=== PATIENT | female | born 1965 | race Caucasian/White ===

== ENCOUNTER → 2019-09-29 17:50 | Outpatient (BNVA) | payer MEDICARE, SELFPAY | PROVIDERS: Family Provider Family Medicine; PCP Family Medicine; Visit Provider Family Medicine | DX: I10 Essential (primary) hypertension (principal) | CPT/HCPCS: 80048; 80061 ==

== ENCOUNTER → 2020-04-01 10:10 | Outpatient (BNVA) | payer MEDICARE, SELFPAY | PROVIDERS: Family Provider Family Medicine; PCP Family Medicine; Visit Provider Nurse Practitioner Family | DX: I10 Essential (primary) hypertension (principal); Z72.0 Tobacco use | CPT/HCPCS: 80053; 80061; 82043 ==

== ENCOUNTER → 2020-06-27 11:35 | Outpatient (BNVA) | payer MEDICARE, SELFPAY | PROVIDERS: Family Provider Family Medicine; PCP Family Medicine; Visit Provider Nurse Practitioner Family | DX: Z20.828 Contact with and (suspected) exposure to other viral communicable diseases (principal) | CPT/HCPCS: 87635 ==

== ENCOUNTER → 2020-07-18 11:24 | Outpatient (BNVA) | payer MEDICARE, SELFPAY | PROVIDERS: Family Provider Family Medicine; PCP Family Medicine; Visit Provider Family Medicine | DX: I10 Essential (primary) hypertension (principal); H10.10 Acute atopic conjunctivitis, unspecified eye | CPT/HCPCS: 80048 ==

== ENCOUNTER → 2020-08-26 09:49 | Outpatient (BNVA) | payer MEDICARE, SELFPAY | PROVIDERS: Family Provider Family Medicine; PCP Family Medicine; Visit Provider Emergency Medicine | DX: Z20.828 Contact with and (suspected) exposure to other viral communicable diseases (principal); R53.83 Other fatigue | CPT/HCPCS: 87635 ==

== ENCOUNTER → 2021-02-02 10:22 | Outpatient (BNVA) | payer MEDICARE, SELFPAY | PROVIDERS: Family Provider Family Medicine; PCP Family Medicine; Visit Provider Family Medicine | DX: E78.2 Mixed hyperlipidemia (principal); I10 Essential (primary) hypertension | CPT/HCPCS: 80053; 80061 ==

== ENCOUNTER → 2021-08-02 10:18 | Outpatient (BNVA) | payer MEDICARE, SELFPAY | PROVIDERS: Family Provider Family Medicine; PCP Family Medicine; Visit Provider Family Medicine | DX: E78.2 Mixed hyperlipidemia (principal); I10 Essential (primary) hypertension; H10.10 Acute atopic conjunctivitis, unspecified eye | CPT/HCPCS: 80053; 80061 ==

== ENCOUNTER → 2022-03-20 10:29 | Outpatient (BNVA) | payer MEDICARE, SELFPAY | PROVIDERS: Family Provider Family Medicine; PCP Family Medicine; Visit Provider Family Medicine | DX: I10 Essential (primary) hypertension (principal); H10.10 Acute atopic conjunctivitis, unspecified eye; M79.644 Pain in right finger(s); G89.29 Other chronic pain | CPT/HCPCS: 73130 ==

== ENCOUNTER → 2022-03-26 13:29 | Outpatient (BNVA) | payer MEDICARE, SELFPAY | PROVIDERS: Family Provider Family Medicine; PCP Family Medicine; Visit Provider Student in an Organized Health Care Education/Training Program | DX: M79.644 Pain in right finger(s) (principal) | CPT/HCPCS: 73130 ==

== ENCOUNTER 2022-03-26 15:53 | Outpatient (CLI) | payer MEDICARE, SELFPAY | END 2022-03-26 15:54 | disposition home or self-care (01) | LOC: SPT 15:53 | PROVIDERS: Family Provider Family Medicine; PCP Family Medicine; Visit Provider Student in an Organized Health Care Education/Training Program | DX: Z46.89 Encounter for fitting and adjustment of other specified devices (principal); G56.03 Carpal tunnel syndrome, bilateral upper limbs | CPT/HCPCS: 97760; L3908 ==

== ENCOUNTER → 2022-05-09 12:58 | Outpatient (BNVA) | payer MEDICARE, SELFPAY | PROVIDERS: Family Provider Family Medicine; PCP Family Medicine; Referring Provider Student in an Organized Health Care Education/Training Program; Visit Provider Specialist | DX: G56.01 Carpal tunnel syndrome, right upper limb (principal) | CPT/HCPCS: 95910; 95912 ==

== ENCOUNTER 2022-05-17 09:53 | Outpatient (CLI) | payer MEDICARE, SELFPAY ==
--- NOTE | 2022-05-17 10:05 | MM_ITS ---
WS: [id number] BILATERAL SCREENING DIGITAL TOMOSYNTHESIS MAMMOGRAM WITH CAD HISTORY: Screening exam. COMPARISON: 05/26/2019 Bilateral CC and MLO views with tomosynthesis and synthetic mammography submitted. Computer aided det ection analyzed. Breast composition: There are scattered areas of fibroglandular density. No suspicious masses, microc alcifications or architectural distortion. MM/[place] [id number] IMPRESSION: BI-RADS: 1-Negative FOLLOW UP: 1 Year Follow-up
== END 2022-05-17 09:54 | disposition home or self-care (01) ==
LOC: RAD 09:55
PROVIDERS: PCP Family Medicine; Visit Provider Family Medicine
DX: Z12.31 Encounter for screening mammogram for malignant neoplasm of breast (principal)
CPT/HCPCS: 77063; 77067

== ENCOUNTER → 2022-05-18 10:23 | Outpatient (BNVA) | payer MEDICARE, SELFPAY | PROVIDERS: PCP Family Medicine; Visit Provider Student in an Organized Health Care Education/Training Program | DX: G56.01 Carpal tunnel syndrome, right upper limb (principal); G56.02 Carpal tunnel syndrome, left upper limb | CPT/HCPCS: 99214 ==

== ENCOUNTER 2022-05-23 06:55 | Day surgery (SDC) | payer MEDICARE, SELFPAY ==
[2022-05-22 10:00] VITALS: BMI 28.7
[2022-05-23] VITALS (8 sets, daily range): BP systolic 141–178; BP diastolic 73–101; PULSE 59–85; RESP 16–19; TEMP 36.4–36.6; O2SAT 98–100
[2022-05-23] MEDS: sodium chloride 0.9% 1,000 ML 30 ML IV (07:40)
--- NOTE | 2022-05-23 07:49 | P.ANESASSM_ITS ---
Pre-Anesthetic Assessment Height/Weight: Height 1.55 m Weight 68.946 kg Preop Diagnosis: Right carpal tunnel syndrome Operation Date: 05/23/22 08:15 Proposed Procedures p RIGHT CARPAL TUNNEL RELEASE [id number],G56.01(Right) - Zeferino Lunsford DO Familial anesthetic complications: None Was Beta Zhang taken within 24 hours: N/A Was Clonidine taken within 24 hours: N/A Last intake: Intake Last Liquid Date 05/22/22 Last Liquid Time 19:00 Last Solid Date 05/22/22 Last Solid Time 19:00 Social No alcohol and No tobacco Exam alert, oriented x 3, clear to auscultation bilaterally and regular rate & rhythm Airway Mallampati: Class II Dentition: false CV/HEM Hypertension Metabolic Hyperlipidemia Neuropsych glaucoma, dry eyes Anesthetic Plan ASA status: 2 Anesthesia: MAC Risk of > 500 ml blood loss (7ml/kg in children): No Medications/Allergies Home Medications Medication Instructions Recorded Confirmed Last Taken Type artificial tears(hypromellose) 0.3 1 drop ophthalmic (eye) DAILY 09/29/19 05/23/22 05/23/22 History % eye gel (Systane Gel) propylene glycol 0.6 % eye drops 1 drop ophthalmic (eye) TID PRN 09/29/19 05/23/22 05/23/22 History (Systane Balance) Dry Eyes timolol maleate 0.5 % eye drops 1 drop ophthalmic (eye) BID 09/29/19 05/23/22 05/23/22 History omega-3 fatty acids 1,000 mg 1,000 mg PO DAILY 08/02/21 05/23/22 05/22/22 History capsule (Fish Oil Concentrate) fluticasone propionate 50 1 spray intranasal Q12H #15.8 mL 03/20/22 05/23/22 05/22/22 Rx mcg/actuation nasal spray,suspension loratadine 10 mg tablet 10 mg PO DAILY 90 days #90 tabs 03/20/22 05/23/22 05/22/22 Rx losartan 100 1 tab PO DAILY 90 days #90 tabs 03/20/22 05/23/22 05/22/22 Rx mg-hydrochlorothiazide 25 mg tablet BILATERAL WRIST SPLINT #1 ea 03/26/22 05/18/22 Unknown Rx ascorbate calcium (vitamin C) 500 1,000 mg PO DAILY 05/02/22 05/23/22 05/22/22 History mg tablet cholecalciferol (vitamin D3) 325 250 mcg PO DAILY 05/02/22 05/23/22 05/22/22 History mcg (13,000 unit) capsule triamcinolone acetonide 0.1 % 1 applic topical BID PRN itching 05/02/22 05/22/22 Unknown Rx topical cream #454 grams cinnamon bark 500 mg capsule 500 mg PO DAILY 05/22/22 05/23/22 05/22/22 History (Cinnamon) Allergies Allergy/AdvReac Type Severity Reaction Status Date / Time diphenhydramine Allergy rash Verified 05/22/22 09:48 [From Benadryl] aspirin AdvReac Mild hives Verified 05/22/22 09:48 [facility] Anesthesia Medical History Cubital tunnel syndrome on right ALANA (generalized anxiety disorder) Glaucoma Hypertension Left carpal tunnel syndrome Mixed hyperlipidemia Right carpal tunnel syndrome Seasonal allergic conjunctivitis Surgical History No pertinent past surgical history Family History Other Cancer Heart disease Social History Smoking and tobacco status: never smoked Alcohol intake: never Female Reproductive History Spontaneous abortions: No Data Anesthesia Cardiac Studies: No Data to Display
[2022-05-23] MEDS: acetaminophen 1,000 MG/100 ML PIGGYBACK 400 MG IV (07:52)
[2022-05-23] MEDS: ketorolac 30 mg/mL INJ IVP (07:53)
[2022-05-23] MEDS: ceFAZolin 2,000 MG in sodium chloride 0.9% (plus) 50 ML 100 MG IV (08:00)
[2022-05-23] MEDS: lidocaine 2% INJ 20 mL INJECTION (08:10)
--- NOTE | 2022-05-23 08:10 | W.PM.OPSUD ---
Surgery/Procedure H&P Update DATE OF PROCEDURE: May 24, 2022 DATE H&P PERFORMED: 05/18/22 CHANGES TO PREVIOUS DOCUMENTATION: None PREOP DIAGNOSIS: Right carpal tunnel syndrome PRIMARY INDICATION FOR PROCEDURE: Right carpal tunnel syndrome PLANNED PROCEDURE: Operation Date: 05/23/22 08:15 Proposed Procedures p RIGHT CARPAL TUNNEL RELEASE [id number],G56.01(Right) - Zeferino Lunsford DO
--- NOTE | 2022-05-23 08:58 | PM.OP2 ---
Brief Operative Note Date of procedure: 05/23/22 Pre-op diagnosis: Right carpal tunnel syndrome Post-op diagnosis: same Procedure Done: right carpal tunnel release Surgeon: Zeferino Lunsford Estimated blood loss (mL): 2 Complications: None Post-op Plan: Patient recovering in PACU. Dressing on and in place. Patient given appropriate discharge instructions as well as pain medication postoperatively. She can be weightbearing as tolerated to the right hand. We will follow-up with me in office in 2 weeks. Contact the office for any questions or concerns Condition: stable Disposition: same day Coding Level of Care Code Acute Associate Professor Of Communication for Abel Prabhakar
--- NOTE | 2022-05-23 09:00 | PM.PACU ---
PACU note Narrative: Patient recovering well in PACU. Patient's pain controlled. Patient received local block and has decreased sensation of the fingers of the right hand. She is able to wiggle her fingers. Brisk capillary refill less than 2 seconds. Fingertips warm well perfused. Exam: awake ( see narrative for detailed exam) Disposition: discharged
--- NOTE | 2022-05-23 09:02 | P.OP_ITS ---
Operative Report Date of procedure: May 23, 2022 Pre-op diagnosis: Preop Diagnosis Right carpal tunnel syndrome Post-op diagnosis: Same Procedure done: right carpal tunnel release Surgeon: Zeferino Lunsford DO Estimated blood loss: 2 cc 8 minutes IV fluids: See anesthesia record Complications: None Findings: See operative report narrative. Condition: stable Disposition: same day Brief History: Patient is a 51-year-old female with complaints of right carpal tunnel syndrome. Patient was seen evaluated in the outpatient setting failed conservative treatment of right we saw patient back in the office and discussed her EMG findings and talked about her treatment options as far as nonoperative operative intervention. She did have an EMG which showed moderate to severe right carpal tunnel syndrome. Through shared decision-making and after failing conservative treatment she elects to proceed with surgical intervention for right carpal tunnel release surgery. Patient states she like to forego corticosteroid injection and have this addressed surgically. Patient understands risk, benefits, complications, alternatives to surgical treatment option. Understanding her wrist she agrees to proceed with surgical intervention. Consent was obtained in the office. All questions were answered. She agrees to proceed with surgical intervention for right carpal tunnel release surgery. Procedure: Patient was seen and evaluated in the preoperative holding area. Consent was reviewed with patient. Correct extremity was then marked. Patient was then seen evaluated by the preoperative and anesthesia team. Once ready for surgical intervention patient was then subsequently taken back to the operative suite. She was transported onto the OR table in supine position all bony prominences well-padded patient appropriately secured to the bed. An armboard was placed to the right upper extremity. Patient's right upper extremity was then nonsterile tourniquet applied. Right upper extremity was then prepped and draped in standard orthopedic fashion. Final timeout was performed. Patient received appropriate preoperative antibiotics. Patient underwent local anesthesia in the preplanned incision site utilizing 5 cc of ropivacaine and bupivacaine. This point time the right upper extremity was then exsanguinated with Esmarch tourniquet and tourniquet inflated to 250 mmHg. A standard mini open carpal tunnel release incision was then made starting with the most distal extent of Higgins's cardinal line in line with the fourth ray extending just distal to the wrist crease. Sharp scalpel excision through skin and subcutaneous tissue self-retaining retractor placed in the palmar fascia was identified. This was split longitudinally deep self-retaining retraction was then placed and utilizing 15 blade scalpel with feathered through the fascia down directly over the transverse carpal ligament. This point time utilizing my entire incision feathered and through the transverse carpal ligament until the carpal tunnel was then encountered. Once this occurred I then utilized my Littler dissection scissors to carry out my decompression of the transverse carpal ligament distally. This was taken through the fascia as well as the most distal extent of the transverse carpal ligament to Count of the palmar fat and a [place] was placed and no areas of entrapment was noted distally this completed the distal decompression. Next I placed a Kasdan retractor proximally. This was placed above the transverse carpal ligament. Next under direct visualization through loupe magnification I took my Littler dissection scissors with the curved facing ulnarly to care to not injure the palmar cutaneous nerve branch of the nerve direct visualization released the transverse carpal ligament to its entirety proximally into the medial antebrachial fascia which was appropriately decompressed. I then utilized a [place] and felt no bands of entrapment of the median nerve proximally or distally. This completed by decompression. Of note the nerve did appear to be constricting at the carpal tunnel with an hourglass position. Mild irritation noted around the nerve. No masses noted. Care to protect the motor recurrent and palmar cutaneous branches was performed. At this point time is completed the decompression. Tourniquet deflated. Hemostasis maintained with electrocautery. Wound bed was then thoroughly irrigated. Incision was then c losed with interrupted horizontal mattress sutures. Incision was then dressed with a bulky soft dressing of Xeroform 4 x 4's ABD Curlex and Holden wrap. Patient tolerated procedure without complications she was then awakened from anesthesia and taken to PACU in stable condition. Disposition: Patient taken to PACU in stable condition. Dressing on in place clean dry and intact. Patient will be given appropriate discharge instructions as well as pain medication postoperatively. She will follow-up with Dr. Lunsford in the office in 2 weeks. May be weightbearing as tolerated range of motion as tolerated to the right hand. All questions answered. We will see her in the office. She understands she has any questions or concerns she can contact the office for any questions.
--- NOTE | 2022-05-23 13:49 | ANE.PACU2 ---
Inpatient post-anesthesia follow up: Airway intact: Yes Vital signs: Temperature 97.5 F Pulse Rate 78 Respiratory Rate 18 Blood Pressure 178/86 Pulse Oximetry 98 Oxygen Delivery Me thod Room Air Oxygen Flow Rate 10 Fraction of Inspir ed Oxygen Hydration adequate: Yes Nausea and vomiting: No Pain level: 1 Mental status: Baseline
== END 2022-05-23 09:30 | disposition home or self-care (01) ==
PROVIDERS: PCP Family Medicine; Visit Provider Student in an Organized Health Care Education/Training Program
PROC: (CPT 64721; principal; 2022-05-23 08:05)
DX: G56.01 Carpal tunnel syndrome, right upper limb (principal); I10 Essential (primary) hypertension; E78.5 Hyperlipidemia, unspecified; F41.1 Generalized anxiety disorder; E78.2 Mixed hyperlipidemia
CPT/HCPCS: 64721; J1885; J2704; J2795; J3010; J7030

== ENCOUNTER → 2022-05-30 13:28 | Outpatient (BNVA) | payer MEDICARE, SELFPAY | PROVIDERS: Family Provider Family Medicine; PCP Family Medicine; Visit Provider Family Medicine | DX: Z12.4 Encounter for screening for malignant neoplasm of cervix (principal) | CPT/HCPCS: 87624 ==

== ENCOUNTER → 2022-06-11 09:10 | Outpatient (BNVA) | payer MEDICARE, SELFPAY | PROVIDERS: Family Provider Family Medicine; PCP Family Medicine; Visit Provider Student in an Organized Health Care Education/Training Program | DX: Z98.890 Other specified postprocedural states (principal) | CPT/HCPCS: 99024 ==

== ENCOUNTER 2022-06-18 06:00 | Outpatient (RCR) | payer MEDICARE, SELFPAY | END 2022-07-11 23:59 | disposition home or self-care (01) | LOC: MOT 06:00 | PROVIDERS: Family Provider Family Medicine; PCP Family Medicine; Visit Provider Student in an Organized Health Care Education/Training Program | DX: G56.01 Carpal tunnel syndrome, right upper limb (principal) | CPT/HCPCS: 97110; 97140; 97165 ==

== ENCOUNTER → 2022-07-16 10:06 | Outpatient (BNVA) | payer MEDICARE, SELFPAY | PROVIDERS: Family Provider Family Medicine; PCP Family Medicine; Visit Provider Student in an Organized Health Care Education/Training Program | DX: M65.311 Trigger thumb, right thumb (principal) | CPT/HCPCS: 20600; 99214; J3301; J3490 ==

== ENCOUNTER → 2022-07-24 09:56 | Outpatient (BNVA) | payer MEDICARE, SELFPAY | PROVIDERS: Family Provider Family Medicine; PCP Family Medicine; Visit Provider Family Medicine | DX: F41.1 Generalized anxiety disorder (principal); I10 Essential (primary) hypertension; E78.2 Mixed hyperlipidemia; Z13.1 Encounter for screening for diabetes mellitus; M65.311 Trigger thumb, right thumb | CPT/HCPCS: 80053; 80061 ==

== ENCOUNTER → 2022-09-07 07:54 | Outpatient (BNVA) | payer MEDICARE, SELFPAY | PROVIDERS: Family Provider Family Medicine; PCP Family Medicine; Visit Provider Student in an Organized Health Care Education/Training Program | DX: M65.311 Trigger thumb, right thumb (principal); G56.02 Carpal tunnel syndrome, left upper limb | CPT/HCPCS: 99214 ==

== ENCOUNTER 2022-09-21 06:44 | Day surgery (SDC) | payer MEDICARE, SELFPAY ==
[2022-09-21] VITALS (8 sets, daily range): BP systolic 128–154; BP diastolic 77–97; PULSE 61–80; RESP 16–20; TEMP 36.1–36.6; O2SAT 94–98
[2022-09-21] MEDS: sodium chloride 0.9% 1,000 ML 30 ML IV (07:28)
[2022-09-21] MEDS: ketorolac 30 mg/mL INJ IVP (07:28)
[2022-09-21] MEDS: acetaminophen 1,000 MG/100 ML PIGGYBACK 400 MG IV (07:28)
--- NOTE | 2022-09-21 07:33 | W.PM.OPSUD ---
Surgery/Procedure H&P Update DATE OF PROCEDURE: September 21, 2022 DATE H&P PERFORMED: 09/07/22 CHANGES TO PREVIOUS DOCUMENTATION: None PREOP DIAGNOSIS: Right trigger thumb, left carpal tunnel syndrome PRIMARY INDICATION FOR PROCEDURE: Right trigger thumb, left carpal tunnel syndrome PLANNED PROCEDURE: Operation Date: 09/21/22 08:55 Proposed Procedures p Right thumb trigger finger release 01874 and left wrist carpal tunnel release 42442,M65.311,G56.02(Right) - Zeferino Lunsford DO s Carpal Tunnel Release(Left) - Zeferino Lunsford DO
--- NOTE | 2022-09-21 07:47 | ANES.PREANE2 ---
Pre-Anesthetic Assessment Height/Weight: Height 1.55 m Weight 68.492 kg Temp Pulse Resp BP Pulse Ox O2 Del Method 97.8 F 78 16 130/86 98 09/21/22 07:20 09/21/22 07:20 09/21/22 07:20 09/21/22 07:20 09/21/22 07:20 09/21/22 07:26 Preop Diagnosis: Right trigger thumb, left carpal tunnel syndrome Operation Date: 09/21/22 08:55 Proposed Procedures p Right thumb trigger finger release 18262 and left wrist carpal tunnel release 43454,M65.311,G56.02(Right) - Zeferino Hodgeman, DO s Carpal Tunnel Release(Left) - Zeferino Lunsford DO Familial anesthetic complications: None Was Beta Zhang taken within 24 hours: N/A Was Clonidine taken within 24 hours: N/A Last intake: Intake Last Liquid Date 09/20/22 Last Liquid Time 22:30 Last Solid Date 09/20/22 Last Solid Time 20:00 Social No alcohol and No tobacco Exam alert, oriented x 3, clear to auscultation bilaterally and regular rate & rhythm Airway Mallampati: Class III Dentition: other (no teeth) Pulmonary None reported CV/HEM Hypertension Metabolic Hyperlipidemia Anesthetic Plan ASA status: 3 Anesthesia: MAC Risk of > 500 ml blood loss (7ml/kg in children): No Medications/Allergies Home Medications Medication Instructions Recorded Confirmed Last Taken Type artificial tears(hypromellose) 0.3 1 drop ophthalmic (eye) DAILY 09/29/19 09/20/22 09/20/22 History % eye gel (Systane Gel) propylene glycol 0.6 % eye drops 1 drop ophthalmic (eye) TID PRN 09/29/19 09/20/22 09/20/22 History (Systane Balance) Dry Eyes timolol maleate 0.5 % eye drops 1 drop ophthalmic (eye) BID 09/29/19 09/20/22 09/20/22 History omega-3 fatty acids 1,000 mg 1,000 mg PO DAILY 08/02/21 09/20/22 09/20/22 History capsule (Fish Oil Concentrate) fluticasone propionate 50 1 spray intranasal Q12H #15.8 mL 03/20/22 09/20/22 09/20/22 Rx mcg/actuation nasal spray,suspension loratadine 10 mg tablet 10 mg PO DAILY 90 days #90 tabs 03/20/22 09/20/22 09/20/22 Rx losartan 100 1 tab PO DAILY 90 days #90 tabs 03/20/22 09/20/22 09/20/22 Rx mg-hydrochlorothiazide 25 mg tablet BILATERAL WRIST SPLINT #1 ea 03/26/22 09/07/22 Unknown Rx ascorbate calcium (vitamin C) 500 1,000 mg PO DAILY 05/02/22 09/20/22 09/20/22 History mg tablet cholecalciferol (vitamin D3) 325 250 mcg PO DAILY 05/02/22 09/20/22 09/20/22 History mcg (13,000 unit) capsule triamcinolone acetonide 0.1 % 1 applic topical BID PRN itching 05/02/22 09/20/22 Unknown Rx topical cream #454 grams cinnamon bark 500 mg capsule 500 mg PO DAILY 05/22/22 09/20/22 09/20/22 History (Cinnamon) polyethylene glycol 3350 17 17 g PO DAILY PRN constipation 05/30/22 09/20/22 Unknown Rx gram/dose oral powder (Miralax) #510 grams sertraline 25 mg tablet (Zoloft) 25 mg PO DAILY 30 days #30 tabs 07/24/22 09/20/22 09/20/22 Rx hydrocodone 5 mg-acetaminophen 325 1 tab PO Q6H PRN pain 5 days #20 09/21/22 Unknown Rx mg tablet tabs Allergies Allergy/AdvReac Type Severity Reaction Status Date / Time diphenhydramine Allergy rash Verified 09/20/22 14:31 [From Benadryl] ibuprofen AdvReac Intermediate hives Verified 09/20/22 14:31 aspirin AdvReac Mild hives Verified 09/20/22 14:31 Current Medications Generic Name Dose Route Start Last Admin Trade Name Freq PRN Reason Stop Dose Admin Sodium Chloride 1,000 mls @ 30 mls/hr 09/21/22 07:15 09/21/22 07:28 Sodium Chloride 0.9% IV 09/22/22 07:14 30 mls/hr .Q24H NICHOLAS Administration PFSH Anesthesia Medical History Cubital tunnel syndrome on right ALANA (generalized anxiety disorder) Glaucoma Hypertension Left carpal tunnel syndrome Mixed hyperlipidemia Right carpal tunnel syndrome Seasonal allergic conjunctivitis Trigger thumb, right thumb Surgical History No pertinent past surgical history Family History Other Cancer Heart disease Social History Smoking and tobacco status: never smoked Alcohol intake: never Female Reproductive History Spontaneous abortions: No Data Anesthesia Cardiac Studies: No Data to Display
[2022-09-21] MEDS: ceFAZolin 2,000 MG in sodium chloride 0.9% (plus) 50 ML 100 MG IV (08:06)
--- NOTE | 2022-09-21 09:00 | P.OP_ITS ---
Operative Report Date of procedure: September 21, 2022 Pre-op diagnosis: Preop Diagnosis Right trigger thumb, left carpal tunnel syndrome Post-op diagnosis: Same Procedure done: Right thumb trigger release Left carpal tunnel release Surgeon: Zeferino Lunsford DO Estimated blood loss: 2mL Left-7 minutes Complications: None Condition: stable Disposition: same day Brief History: Patient established patient with myself in has findings consistent with a right thumb trigger as well as a left carpal tunnel syndrome. She previously has had a right carpal tunnel release and done well. At this point in time we talked about her treatment options in the outpatient setting she had temporary relief with corticosteroid injection to the right trigger thumb but at this point time significant decreased range of motion as well as still catching and pain over the A1 jessee we talked about her treatment options nonoperative and operative intervention and ultimately she would like to have both of these taken care of at the same time as she is already had significant relief with her right carpal tunnel release surgery. We talked about the risk benefits complication alternatives surgical nonsurgical treatment options. Understanding her risk with surgery she elects to proceed with a right thumb trigger release and left carpal tunnel release surgery. All questions answered. Consent obtained in the office. Procedure: Patient seen evaluated in the preoperative holding area. Consent was reviewed and signed with patient correct extremity was marked for right thumb trigger and a left carpal tunnel release. Seen evaluated by Anesthesia Department once cleared by anesthesia was taken back to the operative suite. Patient was placed in supine position with arm boards to the right and left upper extremity. Patient had an IV in the right upper extremity and the tourniquet was not applied. Nonsterile tourniquet applied to the left upper arm. Patient underwent anesthesia per the anesthesia department once appropriately anesthetized the bilateral upper extremities were prepped and draped in sterile orthopedic fashion. Patient final timeout was subsequently performed. Patient received appropriate preoperative antibiotics. Started with the right thumb trigger release. Attempted an Esmarch tourniquet with in the forearm however this was unsatisfactory and ultimately proceeded with surgical intervention without tourniquet. Made a small transverse incision in patient's flexor crease at the MP joint over the A1 jessee. This was made strictly just through skin and switch to Littler dissection scissors spread longitudinally over the digital nerves and these were protected with a Kasdan retractors. I then visualized the A1 jessee and this was incised longitudinally with scalpel. I switched to dissection scissors to complete the release both proximally and distally with care to protect again the digital nerves. At this point time the tendon was come pleat Heriberto release from the A1 jessee and I utilized a rag nail to deliver the tendon out of the sheath and no triggering was noted. Patient thumb was taken through range of motion and no mechanical triggering or catching noted in full range of motion. Wound was then thoroughly irrigated hemostasis satisfactory bipolar electrocautery and then closed this with interrupted nylon suture. This was then dressed with Xeroform 4 x 4's Erika wrap and an Holden wrap. Next I then proceeded with left carpal tunnel release surgery. Esmarch tourniquet was used exsanguinate the left upper extremity and tourniquet was insufflated to 250 mmHg I then made a standard mini open left carpal tunnel incision. This was made in line with the fourth ray starting distally at Higgins's cardinal line extending proximally just distal to the wrist crease. This was made in patient's palmar crease longitudinally. Sharp scalpel incision was made through skin. I then placed a self-retaining retractor and spread longitudinally identified the palmar fascia which was then split. Next my self-retaining retractor was placed deep and I had direct visualization of the transverse carpal ligament as well as palmaris brevis muscle belly. I then utilizing scalpel incised and feathered through the transverse carpal ligament till entered the carpal tunnel. Once I did this I switched to Littler dissection scissors and completed the carpal tunnel release surgery distally releasing all of the transverse carpal ligament into the palmar fat with care to protect the recurrent branch as well as the superficial palmar arch. Once the distal release was performed I then switched to have my assistant terminal manager placed retraction above the transverse carpal ligament I then under loupe magnification had direct visualization of the transverse carpal ligament. I utilized dissection scissors curved ulnarly away from the palmar cutaneous branch and protection of this and released the transverse carpal ligament to its entirely proximally into the median antebrachial fascia then I subsequently switched to a [place] and confirmed adequate complete decompression of the carpal tunnel both proximally and distally. Satisfied with my release and then inspected the contents the carpal tunnel tendons were healthy nerve did appear to be compressed an hourglass shape but overall no masses the nerve appeared to have healthy potential for recovery. Tourniquet deflated wound bed thoroughly irrigated hemostasis satisfactory with bipolar electrocautery. Incision was then reapproximated with interrupted nylon suture. Dressed with Xeroform 4 x 4's Kerlix and an Holden wrap for bulky soft dressing. Patient was then awakened from anesthesia and taken to PACU in stable condition. Disposition: Patient taken to PACU in stable condition recovering well. Dressings on in place to bilateral upper extremities. Patient understands appropriate discharge instruction as well as pain medication postoperatively. We will have patient follow-up with me in the office in 2 weeks for repeat evaluation of the skin incisions and suture removal. She understands she has a questions or concerns she can contact the office for sooner visit. All questions answered.
--- NOTE | 2022-09-21 09:00 | PM.OP2 ---
Brief Operative Note Date of procedure: 09/25/22 Pre-op diagnosis: Right thumb trigger, left carpal tunnel syndrome Post-op diagnosis: same Procedure Done: Right thumb trigger release Left carpal tunnel release Surgeon: Zeferino Lunsford Estimated blood loss (mL): 2 Complications: None Post-op Plan: Patient taken to PACU in stable condition recovering well. Patient received appropriate pain medication and discharge instructions postoperatively. Patient to follow-up with me in the office in 2 weeks. Patient understands agrees with current plan. All questions answered. Condition: stable Disposition: same day Coding Level of Care Code Acute Code for Abel Prabhakar
--- NOTE | 2022-09-21 09:00 | PM.PACU ---
PACU note Narrative: Dressing on in place. Clean dry and intact. Right hand left hand warm well perfused dressings on in place. She is able to wiggle fingers to the right and left hand. Does have decreased sensation to the right thumb and left median nerve distribution secondary to local anesthetic. Fingertips are warm and well-perfused. Brisk capillary refill less than 2 seconds. Exam: awake Disposition: discharged
--- NOTE | 2022-09-21 10:09 | SUR.PHASEII ---
Phase II Recovery nurse, NAFISA Zapien, gave report to this nurse when patient was in PACU. Recovery nurse reported appearance of clear film on upper patient's eye, the conjunctiva of eye. Patient reports no pain or discomfort with this. She reports she does see an eye doctor in [place], [place] and an appointment isn't until November. Patient reports this is something new, she does not feel she has had this before. Spoke with LONA Mullen that had performed her case as well as Dr. Gandhi, Anesthesiologist. She does feel a referral to Ophthalmology may be warranted. Will speak to Dr. Lunsford when he is out of surgery.
--- NOTE | 2022-09-21 11:22 | SUR.PHASEII ---
Phase II [address] with Dr. Gandhi again, she feels the patient had bilateral conjunctivae cysts and does not warrant referral at this time. Instructed patient and patient's to monitor for the next few days, assess for swelling, redness, irritation, pain, or any other abnormal symptoms and to go to ER urgently if any of these symptoms occur. Patient and verbalized understanding.
--- NOTE | 2022-09-21 14:04 | ANE.PACU2 ---
Inpatient post-anesthesia follow up: Airway intact: Yes Vital signs: Temperature 97.0 F Pulse Rate 75 Respiratory Rate 16 Blood Pressure 154/96 Pulse Oximetry 96 Oxygen Delivery Me thod Room Air Oxygen Flow Rate 6 Fraction of Inspir ed Oxygen Hydration adequate: Yes Nausea and vomiting: No Pain level: 1 Mental status: Baseline Additional Comments: Patient noted to have b/l conjunctival cysts postoperatively. patient reports no pain or decreased vision from her baseline. eyes itchy, but this is chronic. Informed if pain or decreased vision occurs to go to ER
== END 2022-09-21 11:25 | disposition home or self-care (01) ==
PROVIDERS: PCP Family Medicine; Visit Provider Student in an Organized Health Care Education/Training Program
PROC: (CPT 26055; principal; 2022-09-21 08:45)
PROC: (CPT 64721; 2022-09-21 08:45)
DX: M65.311 Trigger thumb, right thumb (principal); G56.02 Carpal tunnel syndrome, left upper limb; I10 Essential (primary) hypertension; E78.5 Hyperlipidemia, unspecified; E78.2 Mixed hyperlipidemia
CPT/HCPCS: 26055; 64721; J0131; J0690; J1885; J2250; J2704; J2795; J3010; J3490; J7030

== ENCOUNTER → 2022-10-15 07:20 | Outpatient (BNVA) | payer MEDICARE, SELFPAY | PROVIDERS: PCP Family Medicine; Visit Provider Student in an Organized Health Care Education/Training Program | DX: Z47.89 Encounter for other orthopedic aftercare (principal); E87.6 Hypokalemia | CPT/HCPCS: 80048; 99024 ==

== ENCOUNTER → 2022-11-12 10:42 | Outpatient (BNVA) | payer MEDICARE, SELFPAY | PROVIDERS: PCP Family Medicine; Visit Provider Student in an Organized Health Care Education/Training Program | DX: Z98.890 Other specified postprocedural states (principal) | CPT/HCPCS: 99024; 99213 ==

== ENCOUNTER 2022-11-21 06:00 | Outpatient (RCR) | payer MEDICARE, SELFPAY | END 2022-12-09 23:59 | disposition home or self-care (01) | LOC: MOT 06:00 | PROVIDERS: Visit Provider Student in an Organized Health Care Education/Training Program | DX: Z47.89 Encounter for other orthopedic aftercare (principal) | CPT/HCPCS: 97018; 97110; 97140; 97165 ==

== ENCOUNTER → 2023-02-14 07:30 | Outpatient (BNVA) | payer MEDICARE, SELFPAY | PROVIDERS: Visit Provider Student in an Organized Health Care Education/Training Program | DX: L08.9 Local infection of the skin and subcutaneous tissue, unspecified (principal) | CPT/HCPCS: 99214 ==

== ENCOUNTER 2023-02-14 10:58 | Day surgery (SDC) | payer MEDICARE, SELFPAY ==
[2023-02-14] VITALS (9 sets, daily range): BP systolic 124–168; BP diastolic 77–95; PULSE 72–91; RESP 12–18; TEMP 36.4–37.1; O2SAT 95–98; BMI 28.1
--- NOTE | 2023-02-14 11:54 | W.PM.OPSUD ---
Surgery/Procedure H&P Update DATE OF PROCEDURE: February 14, 2023 DATE H&P PERFORMED: 02/14/23 CHANGES TO PREVIOUS DOCUMENTATION: None. No changes in HPI from today's office visit on 02/14/2023. Patient has palpable fluctuance over thumb incision she has some tenderness to palpation over the carpal tunnel as well we will evaluate the thumb first with irrigation debridement and possible repeat open the carpal tunnel incision depending on intraoperative findings. At this point in time she had done well postoperatively and this over the past week has gotten worse as far as having palpable fluctuance no active drainage at this time she states it has been red and warm. We will proceed with surgery for right thumb I&D. PREOP DIAGNOSIS: Right thumb infection PRIMARY INDICATION FOR PROCEDURE: Right thumb infection PLANNED PROCEDURE: Operation Date: 02/14/23 12:10 Proposed Procedures p Right Thumb Irrigation and Debridement 85760, L08.9(Right) - Zeferino Lunsford DO
[2023-02-14] MEDS: acetaminophen 1,000 MG/100 ML PIGGYBACK 400 MG IV (12:10)
[2023-02-14] MEDS: sodium chloride 0.9% 1,000 ML 30 ML IV (12:11)
[2023-02-14] MEDS: ceFAZolin 2,000 MG in sodium chloride 0.9% (plus) 50 ML 100 MG IV (12:39)
--- NOTE | 2023-02-14 12:41 | P.ANESASSM_ITS ---
Pre-Anesthetic Assessment Height/Weight: Height 1.52 m Weight 65.317 kg Temp Pulse Resp BP Pulse Ox O2 Del Method 98.7 F 78 16 134/77 98 Room Air 02/14/23 11:10 02/14/23 11:10 02/14/23 11:10 02/14/23 11:10 02/14/23 11:10 02/14/23 11:30 Preop Diagnosis: Right thumb infection Operation Date: 02/14/23 12:10 Proposed Procedures p Right Thumb Irrigation and Debridement 63150, L08.9(Right) - Zeferino Bulloch, DO Familial anesthetic complications: none Was Beta Zhang taken within 24 hours: N/A Was Clonidine taken within 24 hours: N/A Last intake: Intake Last Liquid Date 02/14/23 Last Liquid Time 07:45 Last Solid Date 02/13/23 Last Solid Time 18:00 Social No alcohol and No tobacco Exam alert, oriented x 3, clear to auscultation bilaterally and regular rate & rhythm Airway Submandibular: within normal limits Cervical ROM: within normal limits Mallampati: Class II Dentition: chipped CV/HEM Hypertension Metabolic Hyperlipidemia Neuropsych Anxiety and Depression Anesthetic Plan ASA status: 3 Anesthesia: Choice Medications/Allergies Home Medications Medication Instructions Recorded Confirmed Last Taken Type artificial tears(hypromellose) 0.3 1 drop ophthalmic (eye) DAILY 09/29/19 02/14/23 02/14/23 07:00 History % eye gel (Systane Gel) propylene glycol 0.6 % eye drops 1 drop ophthalmic (eye) TID PRN 09/29/19 02/14/23 02/14/23 06:00 History (Systane Balance) Dry Eyes timolol maleate 0.5 % eye drops 1 drop ophthalmic (eye) BID 09/29/19 02/14/23 02/13/23 History omega-3 fatty acids 1,000 mg 1,000 mg PO DAILY 08/02/21 02/14/23 09/20/22 History capsule (Fish Oil Concentrate) BILATERAL WRIST SPLINT #1 ea 03/26/22 02/14/23 Unknown Rx ascorbate calcium (vitamin C) 500 1,000 mg PO DAILY 05/02/22 02/14/23 02/10/23 History mg tablet cholecalciferol (vitamin D3) 325 250 mcg PO DAILY 05/02/22 02/14/23 02/09/23 History mcg (13,000 unit) capsule cinnamon bark 500 mg capsule 500 mg PO DAILY 05/22/22 02/14/23 01/31/23 History (Cinnamon) polyethylene glycol 3350 17 17 g PO DAILY PRN constipation 05/30/22 02/14/23 Unknown Rx gram/dose oral powder (Miralax) #510 grams fluticasone propionate 50 1 spray intranasal Q12H #15.8 mL 01/15/23 02/14/23 02/14/23 08:00 Rx mcg/actuation nasal spray,suspension loratadine 10 mg tablet 10 mg PO DAILY 90 days #90 tabs 01/15/23 02/14/23 02/13/23 Rx losartan 100 1 tab PO DAILY 90 days #90 tabs 01/15/23 02/14/23 02/13/23 Rx mg-hydrochlorothiazide 25 mg tablet sertraline 50 mg tablet 50 mg PO DAILY 90 days #90 tabs 01/15/23 02/14/23 02/13/23 Rx triamcinolone acetonide 0.1 % 1 applic topical BID PRN itching 01/15/23 02/14/23 02/12/23 Rx topical cream #454 grams Allergies Allergy/AdvReac Type Severity Reaction Status Date / Time diphenhydramine Allergy rash Verified 02/14/23 10:30 [From Benadryl] ibuprofen AdvReac Intermediate hives Verified 02/14/23 10:30 aspirin AdvReac Mild hives Verified 02/14/23 10:30 Current Medications Generic Name Dose Route Start Last Admin Trade Name Freq PRN Reason Stop Dose Admin Sodium Chloride 1,000 mls @ 30 mls/hr 02/14/23 11:15 02/14/23 12:11 Sodium Chloride 0.9% IV 02/15/23 11:14 30 mls/hr .Q24H NICHOLAS Administration PFSH Anesthesia Medical History Cubital tunnel syndrome on right ALANA (generalized anxiety disorder) Glaucoma Hypertension Left carpal tunnel syndrome Mixed hyperlipidemia Right carpal tunnel syndrome Seasonal allergic conjunctivitis Trigger thumb, right thumb Surgical History No pertinent past surgical history Family History Other Cancer Heart disease Social History Smoking and tobacco status: never smoked Alcohol intake: never Substance/Drug Use: never Female Reproductive History Date of last menstrual period: 02/25/13 Spontaneous abortions: No Data Anesthesia Cardiac Studies: No Data to Display
--- NOTE | 2023-02-14 13:00 | PM.OP2 ---
Brief Operative Note Date of procedure: 02/14/23 Pre-op diagnosis: Right trigger thumb possible postoperative infection Post-op diagnosis: other (Right trigger thumb tenosynovitis (PVNS)) Procedure Done: Right thumb irrigation and debridement 2 cm x 1 cm x 0.5 cm Right thumb revision trigger release Right thumb tenolysis Right thumb Tenosynovectomy Surgeon: Zeferino Lunsford Estimated blood loss (mL): 1 Complications: None Post-op Plan: Patient taken to PACU in stable condition recovering well. Pain controlled. Dressings on in place to receive appropriate discharge directions as well as pain medication postoperatively. We will put her on empiric antibiotics just in case this is infectious in nature pathology was sent specimens of tenosynovitis. Findings comparable to PVNS intraoperatively. We will follow along micro and path results. Patient receive appropriate discharge instructions as well as pain medication postoperatively. Encourage thumb range of motion as tolerated. We will follow-up in the orthopedic office in 2 weeks. Condition: stable Disposition: same day Coding Level of Care Code Acute Code for Abel Prabhakar
--- NOTE | 2023-02-14 13:05 | PM.PACU ---
PACU note Narrative: Patient taken to PACU in stable condition recovering well. Pain controlled. Dressings on in place clean dry and intact. Patient able to wiggle thumb. Fingertips warm well-perfused brisk cap refill less than 2 seconds decree sensation secondary to local anesthesia. Exam: awake Disposition: discharged
--- NOTE | 2023-02-14 13:10 | PM.OP ---
Operative Report Date of procedure: February 14, 2023 Pre-op diagnosis: Preop Diagnosis Right thumb infection Post-op diagnosis: Right thumb tenosynovitis, PVNS Procedure done: Right thumb irrigation and debridement Right thumb revision trigger release Right thumb FPL tendon tenolysis Right thumb tenosynovectomy Pathology: Multiple villonodular's structures/synovitis from the flexor tendon sheath were sent for pathology Fluid of the flexor tendon sheath was sent for aerobic and anaerobic cultures Surgeon: Zeferino Lunsford DO Estimated blood loss: 1 mL 24 minutes IV fluids: 700 mL Complications: None Findings: See operative report narrative Condition: stable Disposition: same day Brief History: Patient is a pleasant 58-year-old female who presented to my office today with right thumb swelling status post a right thumb trigger release. Concern for possible infection was noted she is over 4 to 5 months out from her trigger thumb release she had been doing fairly well had a small episode of inflammation of this that had resolved but over the past week this is worse and she was placed on antibiotics this was not resolving there is some erythema as well as fluctuance and some crepitus noted on the flexor tendon sheath on motion as result we talked about treatment options and at this point in time given her pain and decreased motion would recommend surgical intervention of a right thumb I&D. Through shared decision-making she agreed to proceed with this. All questions were answered she had not eaten since the night before and so as a result she went straight from our clinic with plan for urgent I&D of the right thumb as patient does live away far from town and hard to get back into town pertaining to rides. She elects proceed with surgical intervention all questions answered. Procedure: Patient seen evaluated the preoperative holding area. Consent was reviewed and signed with patient. All questions answered. Correct extremity was then marked. Patient seen evaluated by anesthesia once cleared for surgery she was taken back to the operative suite. She was transported on the OR table in supine position all bony prominences well-padded patient appropriate secured to bed. Armboard applied to the right upper arm. As well as a nonsterile tourniquet to the right upper arm. This point time the right upper extremity was then prepped and draped sterile orthopedic fashion. Final timeout performed. Antibiotics were held prior to collection of cultures. Esmarch tourniquet was used exsanguinate the right upper extremity tourniquet was insufflated to 250 mmHg. Previous incision of the right thumb trigger release was then utilized in a horizontal fashion directly over the palpable fluctuant fluid space. Expression of yellow straw-colored synovial/flexor tendon sheath fluid was expressed. This was then subsequently cultured aerobic and anaerobic cultures. After cultures were taken antibiotics were then given. There was no necrosis or purulence at all showing any signs of actual infection. There is significant amount of scar tissue and as result I then subsequently utilized Littler dissection scissors dissected out the digital nerves and these were protected with Kasdan retractors throughout the procedure. At this point time I then we released the scarred A1 jessee for revision trigger release. This was completed to its entirety both proximally and distally just up into the oblique jessee. At this point in time it was noted there was multiple synovitic and villonodular's type structures that were all isolated and almost beadlike form these were expressible all along the flexor tendon sheath these were removed and sent for pathology this appeared to be similar to PVNS of the flexor tendon sheath. We will follow-up on pathology results. At this point in time this did not appear much in the way of infectious nature is more of an inflammatory process. At this point in time I had to perform a Martha synovectomy of the flexor tendon as there is significant inflammation tissue and adhesions around the flexor tendon and has resulted completed a tenolysis as well with dissection scissors. This allowed for appropriate movement and excursion of the FPL tendon and restoring of patient's range of motion. At this point in time once all synovitis was removed from the flexor tendon sheath I then thoroughly irrigated the wound bed with cystoscopy tubing and 1 L normal saline. Once thoroughly irrigated I then inspected the wound bed this was free of any adhesions as well as any necrotic type tissue. Total extent of the I&D was 2 cm x 1 cm x 0.5 cm. I utilized a rag nail to pull the tendon through the wound and there is no triggering noted in appropriate excursion of the tendon. This point time tourniquet was deflated hemostasis satisfactory. Once again irrigation was performed. There did not appear to be any involvement down to the carpal tunnel and I think the carpal tunnel pain was just a referral from the FPL tendon tenosynovitis. At this point in time I then closed the incision with interrupted nylon suture. This was covered with Xeroform 4 x 4's fluffs Curlex and Holden wrap. Patient was then awakened from anesthesia and taken to PACU in stable condition. Disposition: Patient taken to PACU in stable condition recovering well. Dressings are in place clean dry and intact she will follow-up in the orthopedic office in 2 weeks we will follow-up with pathology results as well as aerobic and anaerobic cultures. We will send her home on prophylactic antibiotics. Given appropriate discharge instructions as well. Encouraged thumb range of motion after 72 hours. Patient understands and agrees with current plan. All questions answered.
[2023-02-14] MEDS: fentaNYL 50 mcg/mL INJ 2mL IVP (13:20)
[2023-02-14] MEDS: HYDROcodone-acetaminophen 5-325 mg Tablet 1 TAB PO (14:12)
== END 2023-02-14 14:30 | disposition home or self-care (01) ==
PROVIDERS: PCP Family Medicine; Visit Provider Student in an Organized Health Care Education/Training Program
PROC: (CPT 26055; principal; 2023-02-14 12:00)
DX: L08.9 Local infection of the skin and subcutaneous tissue, unspecified (principal); M65.841 Other synovitis and tenosynovitis, right hand; M12.28 Villonodular synovitis (pigmented), other specified site; I10 Essential (primary) hypertension; E78.2 Mixed hyperlipidemia; G56.01 Carpal tunnel syndrome, right upper limb; F41.1 Generalized anxiety disorder
CPT/HCPCS: 26055; 26145; 87070; 87075; 87205; 88307; 99214; J0131; J0690; J1100; J2405; J2704; J3010; J7030

== ENCOUNTER → 2023-03-01 09:15 | Outpatient (BNVA) | payer MEDICARE, SELFPAY | PROVIDERS: PCP Family Medicine; Visit Provider Student in an Organized Health Care Education/Training Program | DX: M65.311 Trigger thumb, right thumb (principal); M12.20 Villonodular synovitis (pigmented), unspecified site | CPT/HCPCS: 99024 ==

== ENCOUNTER 2023-03-06 06:44 | Day surgery (SDC) | payer MEDICARE, SELFPAY ==
[2023-03-05 09:13] VITALS: BMI 28.7
[2023-03-06 07:08] VITALS: BP 140/82; PULSE 85; RESP 16; TEMP 36.2; O2SAT 98
[2023-03-06] MEDS: sodium chloride 0.9% 1,000 ML 30 ML IV (07:10)
--- NOTE | 2023-03-06 07:39 | ANES.PREANE2 ---
Pre-Anesthetic Assessment Height/Weight: Height 1.52 m Weight 66.678 kg Temp Pulse Resp BP Pulse Ox O2 Del Method 97.1 F L 85 16 140/82 98 Room Air 03/06/23 07:08 03/06/23 07:08 03/06/23 07:08 03/06/23 07:08 03/06/23 07:08 03/06/23 07:08 Operation Date: 03/06/23 08:00 Proposed Procedures p Colonoscopy 17793,Z12.11(Not Applicable) - Angus Riggs DO Familial anesthetic complications: None Was Beta Zhang taken within 24 hours: N/A Was Clonidine taken within 24 hours: N/A Last intake: Intake Last Liquid Date 03/05/23 Last Liquid Time 22:00 Last Solid Date 03/04/23 Last Solid Time 19:00 Social No alcohol and No tobacco Exam alert, oriented x 3, clear to auscultation bilaterally and regular rate & rhythm Airway Mallampati: Class I Dentition: full CV/HEM Hypertension Metabolic Hyperlipidemia Anesthetic Plan ASA status: 2 Anesthesia: MAC Risk of > 500 ml blood loss (7ml/kg in children): No Medications/Allergies Home Medications Medication Instructions Recorded Confirmed Last Taken Type artificial tears(hypromellose) 0.3 1 drop ophthalmic (eye) DAILY 09/29/19 03/05/23 03/06/23 History % eye gel (Systane Gel) propylene glycol 0.6 % eye drops 1 drop ophthalmic (eye) TID PRN 09/29/19 03/05/23 03/05/23 History (Systane Balance) Dry Eyes timolol maleate 0.5 % eye drops 1 drop ophthalmic (eye) BID 09/29/19 03/05/23 03/06/23 History omega-3 fatty acids 1,000 mg 1,000 mg PO DAILY 08/02/21 03/05/23 03/05/23 History capsule (Fish Oil Concentrate) BILATERAL WRIST SPLINT #1 ea 03/26/22 03/05/23 03/05/23 Rx ascorbate calcium (vitamin C) 500 1,000 mg PO DAILY 05/02/22 03/05/23 03/05/23 History mg tablet cholecalciferol (vitamin D3) 325 250 mcg PO DAILY 05/02/22 03/05/23 03/05/23 History mcg (13,000 unit) capsule cinnamon bark 500 mg capsule 500 mg PO DAILY 05/22/22 03/05/23 03/05/23 History (Cinnamon) polyethylene glycol 3350 17 17 g PO DAILY PRN constipation 05/30/22 03/05/23 03/05/23 Rx gram/dose oral powder (Miralax) #510 grams fluticasone propionate 50 1 spray intranasal Q12H #15.8 mL 01/15/23 03/05/23 03/06/23 Rx mcg/actuation nasal spray,suspension loratadine 10 mg tablet 10 mg PO DAILY 90 days #90 tabs 01/15/23 03/05/23 03/05/23 Rx losartan 100 1 tab PO DAILY 90 days #90 tabs 01/15/23 03/05/23 03/05/23 Rx mg-hydrochlorothiazide 25 mg tablet sertraline 50 mg tablet 50 mg PO DAILY 90 days #90 tabs 01/15/23 03/05/23 03/05/23 Rx triamcinolone acetonide 0.1 % 1 applic topical BID PRN itching 01/15/23 03/05/23 03/05/23 Rx topical cream #454 grams Allergies Allergy/AdvReac Type Severity Reaction Status Date / Time diphenhydramine Allergy rash Verified 03/06/23 07:08 [From Benadryl] ibuprofen AdvReac Intermediate hives Verified 03/06/23 07:08 aspirin AdvReac Mild hives Verified 03/06/23 07:08 Current Medications Generic Name Dose Route Start Last Admin Trade Name Freq PRN Reason Stop Dose Admin Sodium Chloride 1,000 mls @ 30 mls/hr 03/06/23 07:00 03/06/23 07:10 Sodium Chloride 0.9% IV 03/07/23 06:59 30 mls/hr .Q24H NICHOLAS Administration PFSH Anesthesia Medical History Cubital tunnel syndrome on right ALANA (generalized anxiety disorder) Glaucoma Hypertension Left carpal tunnel syndrome Mixed hyperlipidemia Right carpal tunnel syndrome Seasonal allergic conjunctivitis Trigger thumb, right thumb Surgical History No pertinent past surgical history Family History Other Cancer Heart disease Social History Smoking and tobacco status: never smoked Alcohol intake: never Substance/Drug Use: never Female Reproductive History Spontaneous abortions: No Data Anesthesia Cardiac Studies: No Data to Display
--- NOTE | 2023-03-06 08:34 | PM.HP ---
Providers/Chief Complaint Primary Care Provider: Laurel Poole MD Chief Complaint: Z12.11 History of Present Illness Nathaly Swenson is a 58 year old female who presents for her first screening colonoscopy. She recently had a positive Cologuard. She denies any family history of colon cancer, nausea, emesis, diarrhea, constipation, hematochezia and/or melena. Medications/Allergies Home Medications Medication Instructions Recorded Confirmed Last Taken Type artificial tears(hypromellose) 0.3 1 drop ophthalmic (eye) DAILY 09/29/19 03/05/23 03/06/23 History % eye gel (Systane Gel) propylene glycol 0.6 % eye drops 1 drop ophthalmic (eye) TID PRN 09/29/19 03/05/23 03/05/23 History (Systane Balance) Dry Eyes timolol maleate 0.5 % eye drops 1 drop ophthalmic (eye) BID 09/29/19 03/05/23 03/06/23 History omega-3 fatty acids 1,000 mg 1,000 mg PO DAILY 08/02/21 03/05/23 03/05/23 History capsule (Fish Oil Concentrate) BILATERAL WRIST SPLINT #1 ea 03/26/22 03/05/23 03/05/23 Rx ascorbate calcium (vitamin C) 500 1,000 mg PO DAILY 05/02/22 03/05/23 03/05/23 History mg tablet cholecalciferol (vitamin D3) 325 250 mcg PO DAILY 05/02/22 03/05/23 03/05/23 History mcg (13,000 unit) capsule cinnamon bark 500 mg capsule 500 mg PO DAILY 05/22/22 03/05/23 03/05/23 History (Cinnamon) polyethylene glycol 3350 17 17 g PO DAILY PRN constipation 05/30/22 03/05/23 03/05/23 Rx gram/dose oral powder (Miralax) #510 grams fluticasone propionate 50 1 spray intranasal Q12H #15.8 mL 01/15/23 03/05/23 03/06/23 Rx mcg/actuation nasal spray,suspension loratadine 10 mg tablet 10 mg PO DAILY 90 days #90 tabs 01/15/23 03/05/23 03/05/23 Rx losartan 100 1 tab PO DAILY 90 days #90 tabs 01/15/23 03/05/2323 Rx mg-hydrochlorothiazide 25 mg tablet sertraline 50 mg tablet 50 mg PO DAILY 90 days #90 tabs 01/15/23 03/05/23 03/05/23 Rx triamcinolone acetonide 0.1 % 1 applic topical BID PRN itching 01/15/23 03/05/23 03/05/23 Rx topical cream #454 grams Allergies Allergy/AdvReac Type Severity Reaction Status Date / Time diphenhydramine Allergy rash Verified 03/06/23 07:08 [From Benadryl] ibuprofen AdvReac Intermediate hives Verified 03/06/23 07:08 aspirin AdvReac Mild hives Verified 03/06/23 07:08 PFSH Acute PFSH: Medical History Cubital tunnel syndrome on right ALANA (generalized anxiety disorder) Glaucoma Hypertension Left carpal tunnel syndrome Mixed hyperlipidemia Right carpal tunnel syndrome Seasonal allergic conjunctivitis Trigger thumb, right thumb Surgical History No pertinent past surgical history Family History Other Cancer Heart disease Social History Smoking and tobacco status: never smoked Alcohol intake: never Substance/Drug Use: never Female Reproductive History: Spontaneous abortions: No Vitals/I&O/Wt Last Vital Signs Temp 97.1 F L 03/06/23 07:08 Pulse 85 03/06/23 07:08 Resp 16 03/06/23 07:08 BP 140/82 03/06/23 07:08 Pulse Ox 98 03/06/23 07:08 O2 Del Method Room Air 03/06/23 07:08 Weight last 48 hrs Weight 147 lb A&P Assessment and plan (1) Colon cancer screening: (2) Positive colorectal cancer screening using Cologuard test: Plan Screening colonoscopy The risks and benefits of the procedure, including bleeding, infection, intestinal perforation requiring surgery, missed lesion were explained to the patient. The patient is understanding of the risks and wishes to proceed. Attestations Medical Necessity Statement*: Home Coding Level of Care Code Acute Code for Chg Fwd Diagnoses Colon cancer screening Z12.11 Positive colorectal cancer screening using Cologuard test R19.5
[2023-03-06 08:50] VITALS: BP 100/66; PULSE 62; RESP 12; TEMP 36.5; O2SAT 99
[2023-03-06 09:06] VITALS: BP 133/77; PULSE 65; RESP 16; O2SAT 99
[2023-03-06 09:16] LABS: Basophils % 1.1 %; Eosinophils # 0.1 10^3/uL (0.0-0.8); Eosinophils % 2.2 %; Hematocrit 32.1 % (37.0-47.0); Hemoglobin 10.9 g/dL (11.5-15.3); Lymphocytes # 1.5 10^3/uL (0.8-4.8); Lymphocytes % 40.6 %; Mean Corpuscular Hemoglobin 30.3 pg (28.0-34.0); Mean Corpuscular Volume 89.2 fl (81-99); Mean Platelet Volume 9.5 fL (7.4-10.4); Monocytes # 0.3 10^3/uL (0.2-0.9); Monocytes % 8.6 %; Neutrophils % 47.2 %; Nucleated Red Blood Cells % 0 %; Platelet Count 211 10^3/cmm (130-400); Red Cell Distribution Width 13.3 % (12.1-15.1); White Blood Count 3.6 10^3/uL (4.0-10.0)
--- NOTE | 2023-03-06 09:35 | ANE.PACU2 ---
Inpatient post-anesthesia follow up: Airway intact: Yes Vital signs: Temperature 97.7 F Pulse Rate 65 Respiratory Rate 16 Blood Pressure 133/77 Pulse Oximetry 99 Oxygen Delivery Me thod Room Air Oxygen Flow Rate Fraction of Inspir ed Oxygen Hydration adequate: Yes Nausea and vomiting: No Pain level: 1 Mental status: Baseline
[2023-03-06 09:45] LABS: Carcinoembryonic Antigen 1.2 ng/mL (0.0-4.7)
[2023-03-06 09:56] LABS: Anion Gap 12.9 (5-19); Blood Urea Nitrogen 6 mg/dL (6-20); Calcium 8.7 mg/dL (8.5-10.5); Carbon Dioxide 24 mmol/L (22-29); Chloride 108 mmol/L (98-107); Glomerular Filtration Rate 163.4 mL/min (90-130); Glucose 96 mg/dL (65-115); Osmolality Calculated 291 mOsm/kg (285-295); Sodium 142 mmol/L (136-145)
[2023-03-06 09:58] LABS: Potassium 2.9 mmol/L (3.5-5.1)
--- NOTE | 2023-03-06 10:07 | SUR.PHASEII ---
lab called with critical potassium of 2.9 03/06/23 0957. notified 03/06/23 1007.
== END 2023-03-06 09:40 | disposition home or self-care (01) ==
PROVIDERS: PCP Family Medicine; Visit Provider Surgery
PROC: 0DJD8ZZ Inspection of Lower Intestinal Tract, Via Natural or Artificial Opening Endoscopic (ICD-10-PCS; CPT 45378; principal; 2023-03-06 08:00)
DX: Z12.11 Encounter for screening for malignant neoplasm of colon (principal); I10 Essential (primary) hypertension; E78.5 Hyperlipidemia, unspecified; D12.4 Benign neoplasm of descending colon; K64.8 Other hemorrhoids
CPT/HCPCS: 36415; 45380; 80048; 82378; 85025; 88305; J2704; J7030

== ENCOUNTER 2023-03-15 15:25 | Outpatient (CLI) | payer MEDICARE, SELFPAY ==
[2023-03-15] MEDS: iohexol 350 mg/mL 500 mL Btl (per mL) IV (15:57)
--- NOTE | 2023-03-15 16:00 | CTR_ITS ---
PROCEDURE INFORMATION: Exam: CT Abdomen And Pelvis With Contrast Exam date and time: 03/15/2023 3:51 PM Age: 58 years old Clinical indication: Condition or disease; Intestinal condition; Patient HX: PT had a colonoscopy done 2-3 days ago. PT was told that there was a mass seen. Per Dr. Luna notes positive colorectal cancer screening using cologuard test ; Additional info: K63.89 - other specified diseases of intestine, iv contrast TECHNIQUE: Imaging protocol: Computed tomography of the abdomen and pelvis with contrast. Radiation optimization: All CT scans at this facility use at least one of these dose optimization techniques: automated exposure control; mA and/or kV adjustment per patient size (includes targeted exams where dose is matched to clinical indication); or iterative reconstruction. Contrast material: OMNI 350; Contrast volume: 100 ml; Contrast route: INTRAVENOUS (IV); REPORTING DATA: Count of CT and Cardiac NM exams in prior 12 months: This patient has received 0 known CTs and 0 known cardiac nuclear medicine studies in the 12 months prior to the current study. COMPARISON: No relevant prior studies available. RADIATION DOSE METRICS: Total DLP (mGy-cm): 285.37 FINDINGS: Lungs: Minor atelectatic changes at the lung bases. Liver: Liver is enlarged with mild fatty infiltration present. Two small liver cyst left lobe likely benign. Gallbladder and bile ducts: Normal. No calcified stones. No ductal dilation. Pancreas: Unremarkable. Main pancreatic duct is not significantly dilated. Spleen: Normal. No splenomegaly. Adrenal glands: Normal. No mass. Kidneys and ureters: Normal. No hydronephrosis. Stomach and bowel: Intraluminal oval-shaped masslike density within the right colon measuring 5.5 x 2.2 cm right lower quadrant concerning for colonic tumor. No obstruction. Appendix: No evidence of appendicitis. Intraperitoneal space: Unremarkable. No free air. No significant fluid collection. Vasculature: Unremarkable. No abdominal aortic aneurysm. Lymph nodes: Unremarkable. No enlarged lymph nodes. Urinary bladder: Unremarkable as visualized. Reproductive: Evidence of prior tubal ligation. Uterus is unremarkable. Bones/joints: Unremarkable. No acute fracture. Soft tissues: Unremarkable. CT/CT abdomen pelvis w con* [id number] IMPRESSION: 1. 5.5 x 2.2 cm oval-shaped intraluminal mass right colon suspicious for colonic malignancy. No evidence of bowel obstruction. 2. No compelling evidence of metastatic disease within the abdomen and pelvis. 3. Mild hepatomegaly with fatty infiltration small benign liver cysts.
== END 2023-03-15 15:26 | disposition home or self-care (01) ==
PROVIDERS: PCP Family Medicine; Visit Provider Surgery
DX: K63.9 Disease of intestine, unspecified (principal); K76.0 Fatty (change of) liver, not elsewhere classified
CPT/HCPCS: 74177; Q9967

== ENCOUNTER → 2023-03-20 16:36 | Outpatient (BNVA) | payer MEDICARE, SELFPAY | PROVIDERS: PCP Family Medicine; Visit Provider Surgery | DX: Z09 Encounter for follow-up examination after completed treatment for conditions other than malignant neoplasm (principal) | CPT/HCPCS: 99212 ==

== ENCOUNTER → 2023-03-22 10:03 | Day surgery (SDC) | payer MEDICARE, SELFPAY ==
[2023-03-21 11:08] VITALS: BMI 28.7
[2023-03-22 10:50] VITALS: BP 129/93; PULSE 71; RESP 18; TEMP 36.6; O2SAT 99
[2023-03-22] MEDS: sodium chloride 0.9% 1,000 ML 30 ML IV (11:02)
--- NOTE | 2023-03-22 11:05 | ANES.PREANE2 ---
Pre-Anesthetic Assessment Height/Weight: Height 1.52 m Weight 66.678 kg Temp Pulse Resp BP Pulse Ox O2 Del Method 98 F 71 18 129/93 99 Room Air 03/22/23 10:50 03/22/23 10:50 03/22/23 10:50 03/22/23 10:50 03/22/23 10:50 03/22/23 10:50 Operation Date: 03/22/23 11:15 Proposed Procedures p [id number] colon with endoscopic muscosal resection K63.89(Not Applicable) - DO ari Branch Endoscopic Mucosal Resection(Not Applicable) - Angus Riggs DO Familial anesthetic complications: none Was Beta Zhang taken within 24 hours: N/A Was Clonidine taken within 24 hours: N/A Last intake: Intake Last Liquid Date 03/21/23 Last Liquid Time 20:00 Last Solid Date 03/21/23 Last Solid Time 07:00 Social No alcohol and No tobacco Exam alert, oriented x 3, clear to auscultation bilaterally and regular rate & rhythm Airway Mallampati: Class I Dentition: full CV/HEM Hypertension Metabolic Hyperlipidemia Anesthetic Plan ASA status: 2 Anesthesia: MAC Risk of > 500 ml blood loss (7ml/kg in children): No Medications/Allergies Home Medications Medication Instructions Recorded Confirmed Last Taken Type artificial tears(hypromellose) 0.3 1 drop ophthalmic (eye) DAILY 09/29/19 03/22/23 03/22/23 History % eye gel (Systane Gel) propylene glycol 0.6 % eye drops 1 drop ophthalmic (eye) TID PRN 09/29/19 03/21/23 03/21/23 History (Systane Balance) Dry Eyes timolol maleate 0.5 % eye drops 1 drop ophthalmic (eye) BID 09/29/19 03/22/23 03/22/23 History omega-3 fatty acids 1,000 mg 1,000 mg PO DAILY 08/02/21 03/21/23 03/21/23 History capsule (Fish Oil Concentrate) BILATERAL WRIST SPLINT #1 ea 03/26/22 03/21/23 03/21/23 Rx ascorbate calcium (vitamin C) 500 1,000 mg PO DAILY 05/02/22 03/22/23 03/22/23 History mg tablet cholecalciferol (vitamin D3) 325 250 mcg PO DAILY 09/03/21/23 03/21/23 History mcg (13,000 unit) capsule cinnamon bark 500 mg capsule 500 mg PO DAILY 05/22/22 03/21/23 03/21/23 History (Cinnamon) polyethylene glycol 3350 17 17 g PO DAILY PRN constipation 05/30/22 03/21/23 03/21/23 Rx gram/dose oral powder (Miralax) #510 grams fluticasone propionate 50 1 spray intranasal Q12H #15.8 mL 01/15/23 03/22/23 03/22/23 Rx mcg/actuation nasal spray,suspension loratadine 10 mg tablet 10 mg PO DAILY 90 days #90 tabs 01/15/23 03/22/23 03/22/23 Rx losartan 100 1 tab PO DAILY 90 days #90 tabs 01/15/23 03/21/23 03/21/23 Rx mg-hydrochlorothiazide 25 mg tablet sertraline 50 mg tablet 50 mg PO DAILY 90 days #90 tabs 01/15/23 03/22/23 03/21/23 Rx triamcinolone acetonide 0.1 % 1 applic topical BID PRN itching 01/15/23 03/21/23 03/21/23 Rx topical cream #454 grams hydrocortisone 2.5 % topical cream 1 applic MT QID 3 weeks #30 grams 03/06/23 03/21/23 03/21/23 Rx with perineal applicator (Procto-Med ) Allergies Allergy/AdvReac Type Severity Reaction Status Date / Time diphenhydramine Allergy rash Verified 03/20/23 16:36 [From Benadryl] ibuprofen AdvReac Intermediate hives Verified 03/20/23 16:36 aspirin AdvReac Mild hives Verified 03/20/23 16:36 Current Medications Generic Name Dose Route Start Last Admin Trade Name Freq PRN Reason Stop Dose Admin Sodium Chloride 1,000 mls @ 30 mls/hr 03/22/23 10:30 03/22/23 11:02 Sodium Chloride 0.9% IV 03/23/23 10:29 30 mls/hr .Q24H NICHOLAS Administration PFSH Anesthesia Medical History Cubital tunnel syndrome on right ALANA (generalized anxiety disorder) Glaucoma Hypertension Left carpal tunnel syndrome Mixed hyperlipidemia Right carpal tunnel syndrome Seasonal allergic conjunctivitis Trigger thumb, right thumb Surgical History No pertinent past surgical history Family History Other Cancer Heart disease Social History Smoking and tobacco status: never smoked Alcohol intake: never Substance/Drug Use: never Female Reproductive History Spontaneous abortions: No Data Anesthesia Cardiac Studies: No Data to Display
--- NOTE | 2023-03-22 12:38 | W.PM.OPSUD ---
Surgery/Procedure H&P Update DATE OF PROCEDURE: March 22, 2023 DATE H&P PERFORMED: 03/20/23 H&P UPDATE INFORMATION: I have reviewed H&P completed within last 30 days, I have examined patient prior to procedure and No changes to prior documentation PLANNED PROCEDURE: Operation Date: 03/22/23 11:15 Proposed Procedures p [id number] colon with endoscopic muscosal resection K63.89(Not Applicable) - DO ari Branch Endoscopic Mucosal Resection(Not Applicable) - Angus Riggs DO
[2023-03-22 13:25] VITALS: BP 131/81; PULSE 75; RESP 17; TEMP 36.2; O2SAT 98
[2023-03-22 13:37] VITALS: BP 130/87; PULSE 72; RESP 16; O2SAT 96
--- NOTE | 2023-03-22 14:09 | ANE.PACU2 ---
Inpatient post-anesthesia follow up: Airway intact: Yes Vital signs: Temperature 97.2 F Pulse Rate 72 Respiratory Rate 16 Blood Pressure 130/87 Pulse Oximetry 96 Oxygen Delivery Me thod Room Air Oxygen Flow Rate Fraction of Inspir ed Oxygen Hydration adequate: Yes Nausea and vomiting: Yes Pain level: 1 Mental status: Baseline
[2023-03-22] MEDS: ondansetron 4 MG Tablet PO (14:10)
== END | disposition home or self-care (01) ==
PROVIDERS: PCP Family Medicine; Visit Provider Surgery
PROC: 0DJD8ZZ Inspection of Lower Intestinal Tract, Via Natural or Artificial Opening Endoscopic (ICD-10-PCS; CPT 45378; principal; 2023-03-22 11:15)
DX: D12.2 Benign neoplasm of ascending colon (principal); I10 Essential (primary) hypertension; E78.2 Mixed hyperlipidemia; K63.89 Other specified diseases of intestine
CPT/HCPCS: 45388; 45390; 88305; J2704; J7030; Q0162

== ENCOUNTER → 2023-04-12 16:13 | Outpatient (BNVA) | payer MEDICARE, SELFPAY | PROVIDERS: PCP Family Medicine; Visit Provider Surgery | DX: K63.89 Other specified diseases of intestine (principal) | CPT/HCPCS: 99212 ==

== ENCOUNTER → 2023-05-03 08:19 | Outpatient (BNVA) | payer MEDICARE, SELFPAY | PROVIDERS: PCP Family Medicine; Visit Provider Surgery | DX: K63.89 Other specified diseases of intestine (principal) | CPT/HCPCS: 99213 ==

== ENCOUNTER 2023-05-06 14:59 | Inpatient (IN) | payer MEDICARE, SELFPAY ==
[2023-05-06] VITALS (19 sets, daily range): BP systolic 117–145; BP diastolic 73–86; PULSE 61–83; RESP 14–22; TEMP 36.3–37; O2SAT 93–100
--- NOTE | 2023-05-06 10:49 | W.PM.OPSUD ---
Surgery/Procedure H&P Update DATE OF PROCEDURE: May 06, 2023 DATE H&P PERFORMED: 05/03/23 H&P UPDATE INFORMATION: I have reviewed H&P completed within last 30 days, I have examined patient prior to procedure and No changes to prior documentation PLANNED PROCEDURE: Operation Date: 05/06/23 12:30 Proposed Procedures p 39666 lap right hemicolectomy K63.89 inpatient(Right) - Angus Riggs DO
[2023-05-06] MEDS: sodium chloride 0.9% 1,000 ML 30 ML IV (11:46)
[2023-05-06 11:50] LABS: Basophils # 0.1 10^3/uL (0.0-0.1); Basophils % 1.1 %; Eosinophils # 0.1 10^3/uL (0.0-0.8); Eosinophils % 1.8 %; Hematocrit 38.7 % (36-47); Lymphocytes # 2.1 10^3/uL (0.8-4.8); Lymphocytes % 33.2 %; Mean Corpuscular HGB Conc 34.9 g/dL (30-55); Mean Corpuscular Hemoglobin 30.5 pg (27-33); Mean Corpuscular Volume 87.6 fl (85-98); Mean Platelet Volume 10.6 fL (7.4-10.4); Monocytes # 0.4 10^3/uL (0.2-0.9); Monocytes % 6.9 %; Neutrophils # 3.56 10^3/uL (1.8-7.7); Neutrophils % 56.7 %; Nucleated Red Blood Cells % 0 %; Platelet Count 315 10^3/cmm (157-399); Red Blood Count 4.42 10^6/uL (3.85-5.65); Red Cell Distribution Width 13.8 % (12.1-15.1); White Blood Count 6.27 10^3/uL (3.29-11.43)
[2023-05-06 12:35] LABS: Anion Gap 13.4 (5-19); Blood Urea Nitrogen 11 mg/dL (6-20); Calcium 9.7 mg/dL (8.5-10.5); Carbon Dioxide 26 mmol/L (22-29); Chloride 105 mmol/L (98-107); Glomerular Filtration Rate 126.3 mL/min (90-130); Glucose 96 mg/dL (65-115); Osmolality Calculated 291 mOsm/kg (285-295); Potassium 3.4 mmol/L (3.5-5.1); Sodium 141 mmol/L (136-145)
[2023-05-06] MEDS: piperacillin-tazobactam 3.375 GM in sodium chloride 0.9% (plus) 50 ML IV ×2 (13:28→18:53)
[2023-05-06] MEDS: lidocaine-epi 2% 20 mL INJ INJECTION (14:02)
[2023-05-06] MEDS: acetaminophen 1,000 MG/100 ML PIGGYBACK 400 MG IV (14:02)
--- NOTE | 2023-05-06 14:06 | XRR_ITS ---
PROCEDURE INFORMATION: Exam: XR Chest Exam date and time: 05/06/2023 3:39 PM Age: 58 years old Clinical indication: Device placement; Prior surgery; Surgery date: Post-operative (0-2 days); Surgery type: Post RT hemicolectomy ng tube; Additional info: Surgery, to do in pacu, will call when ready TECHNIQUE: Imaging protocol: Radiologic exam of the chest. Views: 1 view. COMPARISON: No relevant prior studies available. FINDINGS: Tubes, catheters and devices: Nasogastric tube is well within the stomach. Lungs: Small focal areas of scarring and/or atelectasis are seen in both lower lung centeno. Pleural spaces: Unremarkable. No pleural effusion. No pneumothorax. Heart/Mediastinum: Unremarkable. No cardiomegaly. Bones/joints: Unremarkable. XR/XR chest 1V portable [id number] IMPRESSION: 1. Nasogastric tube is well within the stomach. 2. Small focal areas of scarring and/or atelectasis are seen in both lower lung centeno.
--- NOTE | 2023-05-06 14:52 | PM.OP ---
Operative Report Date of procedure: May 06, 2023 Pre-op diagnosis: Right colon mass Post-op diagnosis: Right colon mass Umbilical hernia Procedure done: Laparoscopic right hemicolectomy Primary umbilical hernia repair Implants: Vistaseal Specimens removed/disposition: Right colon Surgeon: Angus Riggs DO Anesthesia: General Estimated blood loss (mL): 20 Complications: None apparent Brief History: This is a very pleasant 58-year-old female who I found to have a right colon mass by colonoscopy. 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 Laparoscopic right hemicolectomy was indicated. The risk and benefits were explained and documented. Procedure: Patient is well in the OR room and placed on the OR table in supine position. General endotracheal intubation was achieved by department anesthesia. A nasogastric tube was placed as well as a Kennedy catheter. The abdomen was inspected prepped and draped in usual sterile fashion. A timeout was performed. All present were in agreement. 2% lidocaine with epinephrine was used to anesthetize the skin overlying the left upper quadrant. A stab incision was made with a 15 blade scalpel. Veress needle was introduced into the abdomen and intra-abdominal insufflation was brought to 15 mmHg. A 12 mm trocar was placed just infraumbilically. She was found to have an umbilical hernia with omentum incarcerated in it. Umbilical hernia was 1 cm in diameter. Two 5 mm trocars were placed, one in the suprapubic region and 1 in the right lower quadrant. The right white line of Toldt was taken down using Enseal. The hepatic flexure was taken down with Enseal and the omentum was divided with Enseal. I then made a small midline incision superior from the infraumbilical incision. The right colon and small bowel was externalized. Sites were chosen for anastomosis. The distal ileum was anastomosed to the transverse colon and a [id number] functional end-to-end anastomosis using a MARCELA blue load 100 mm stapler x2. Enseal was then used to take down the mesentery. The specimen was passed off as right colon. There was minimal blood loss. Anastomosis looked good. Vistaseal was placed over the anastomosis. The bowel was then placed back into the abdomen and omentum was placed over the anastomosis. I then converted back to a laparoscopic procedure and examined the area. No bleeding was identified. The midline incision was then closed with #1 PDS x2 in a running fashion. The umbilical hernia was primarily repaired with this closure. Skin was closed with 4-0 Monocryl in a subcuticular running fashion. Skin was washed and dried. Dermabond was applied. Patient tolerated procedure well.
--- NOTE | 2023-05-06 15:08 | P.ANESASSM_ITS ---
Pre-Anesthetic Assessment Height/Weight: Height 1.52 m Temp Pulse Resp BP Pulse Ox O2 Del Method 97.3 F L 70 16 133/80 100 Room Air 05/06/23 10:56 05/06/23 10:56 05/06/23 10:56 05/06/23 10:56 05/06/23 10:56 05/06/23 10:58 Operation Date: 05/06/23 12:30 Proposed Procedures p 39871 lap right hemicolectomy K63.89 inpatient(Right) - Angus Riggs DO Familial anesthetic complications: none Was Beta Zhang taken within 24 hours: N/A Was Clonidine taken within 24 hours: N/A Last intake: Intake Last Liquid Date 05/05/23 Last Liquid Time 22:00 Last Solid Date 05/05/23 Last Solid Time 06:45 Social No alcohol and No tobacco Exam alert, oriented x 3, clear to auscultation bilaterally and regular rate & rhythm Airway Submandibular: within normal limits Cervical ROM: within normal limits Mallampati: Class II Dentition: full CV/HEM Hypertension Metabolic Hyperlipidemia Neuropsych Anxiety and Depression Anesthetic Plan ASA status: 2 Anesthesia: General Medications/Allergies Home Medications Medication Instructions Recorded Confirmed Last Taken Type artificial tears(hypromellose) 0.3 1 drop ophthalmic (eye) DAILY 09/29/19 05/03/23 05/04/23 History % eye gel (Systane Gel) propylene glycol 0.6 % eye drops 1 drop ophthalmic (eye) TID PRN 09/29/19 05/03/23 05/06/23 History (Systane Balance) Dry Eyes timolol maleate 0.5 % eye drops 1 drop ophthalmic (eye) BID 09/29/19 05/03/23 05/06/23 History omega-3 fatty acids 1,000 mg 1,000 mg PO DAILY 08/02/21 05/03/23 05/03/23 His tory capsule (Fish Oil Concentrate) BILATERAL WRIST SPLINT #1 ea 03/26/22 05/03/23 03/21/23 Rx ascorbate calcium (vitamin C) 500 1,000 mg PO DAILY 05/02/22 05/03/23 05/03/23 History mg tablet cholecalciferol (vitamin D3) 325 250 mcg PO DAILY 05/02/22 05/06/23 04/29/23 History mcg (13,000 unit) capsule cinnamon bark 500 mg capsule 500 mg PO DAILY 05/22/22 05/06/23 04/29/23 History (Cinnamon) polyethylene glycol 3350 17 17 g PO DAILY PRN constipation 05/30/22 05/06/23 05/05/23 Rx gram/dose oral powder (Miralax) #510 grams fluticasone propionate 50 1 spray intranasal Q12H #15.8 mL 01/15/23 05/03/23 05/06/23 06:00 Rx mcg/actuation nasal spray,suspension loratadine 10 mg tablet 10 mg PO DAILY 90 days #90 tabs 01/15/23 05/03/23 05/06/23 06:00 Rx losartan 100 1 tab PO DAILY 90 days #90 tabs 01/15/23 05/03/23 05/05/23 Rx mg-hydrochlorothiazide 25 mg tablet triamcinolone acetonide 0.1 % 1 applic topical BID PRN itching 01/15/23 05/03/23 05/03/23 Rx topical cream #454 grams Allergies Allergy/AdvReac Type Severity Reaction Status Date / Time diphenhydramine Allergy rash Verified 05/03/23 08:25 [From Benadryl] ibuprofen AdvReac Intermediate hives Verified 05/03/23 08:25 aspirin AdvReac Mild hives Verified 05/03/23 08:25 Current Medications Generic Name Dose Route Start Last Admin Trade Name Freq PRN Reason Stop Dose Admin Sodium Chloride 1,000 mls @ 30 mls/hr 05/06/23 10:45 05/06/23 11:46 Sodium Chloride 0.9% IV 05/07/23 10:44 30 mls/hr .Q24H NICHOLAS Administration PFSH Anesthesia Medical History Cubital tunnel syndrome on right ALANA (generalized anxiety disorder) Glaucoma Hypertension Left carpal tunnel syndrome Mixed hyperlipidemia Right carpal tunnel syndrome Seasonal allergic conjunctivitis Trigger thumb, right thumb Surgical History (Updated 05/03/23 @ 09:00 by Angus Riggs DO) Hx of carpal tunnel repair bilateral- Dr Lunsford Hx of colonoscopy 03/22/23 Dr. Riggs No pertinent past surgical history Family History Other Cancer Heart disease Social History Smoking and tobacco status: never smoked Alcohol intake: never Substance/Drug Use: never Female Reproductive History Spontaneous abortions: No Data Anesthesia 05/06/23 11:10 05/06/23 12:02 Short CBC 05/06/23 Range/Units 11:10 WBC 6.27 (3.29-11.43) 10^3/uL Hgb 13.50 (11.27-16.99) g/dL Hct 38.7 (36-47) % MCV 87.6 (85-98) fl Plt Count 315 (157-399) 10^3/cmm Neut % (Auto) 56.7 % Neut # (Auto) 3.56 (1.8-7.7) 10^3/uL BMP 05/06/23 05/06/23 11:10 12:02 Sodium Cancelled 141 Potassium Cancelled 3.4 L Chloride Cancelled 105 Carbon Dioxide Cancelled 26 BUN Cancelled 11 Creatinine Cancelled 0.5 Glucose Cancelled 96 Calcium Cancelled 9.7 Blood Bank 05/06/23 11:10 Blood Type O Positive Rho(D) Type Positive Antibody Screen Negative Cardiac Studies: No Data to Display
[2023-05-06 15:15] LABS: Basophils # 0.1 10^3/uL (0.0-0.1); Basophils % 0.8 %; Eosinophils # 0.1 10^3/uL (0.0-0.8); Eosinophils % 1.5 %; Hematocrit 32.9 % (36-47); Lymphocytes # 2.7 10^3/uL (0.8-4.8); Mean Corpuscular HGB Conc 33.4 g/dL (30-55); Mean Corpuscular Hemoglobin 29.9 pg (27-33); Mean Corpuscular Volume 89.4 fl (85-98); Mean Platelet Volume 10.3 fL (7.4-10.4); Monocytes # 0.6 10^3/uL (0.2-0.9); Monocytes % 7.9 %; Neutrophils # 3.99 10^3/uL (1.8-7.7); Neutrophils % 53.5 %; Nucleated Red Blood Cells % 0 %; Platelet Count 270 10^3/cmm (157-399); Red Blood Count 3.68 10^6/uL (3.85-5.65); Red Cell Distribution Width 13.2 % (12.1-15.1); White Blood Count 7.45 10^3/uL (3.29-11.43)
[2023-05-06 15:38] LABS: Alanine Aminotransferase 8 U/L (0-33); Albumin Level 4.1 g/dL (3.5-5.2); Alkaline Phosphatase 51 U/L (35-105); Anion Gap 13.7 (5-19); Aspartate Amino Transferase 6 U/L (0-32); Blood Urea Nitrogen 11 mg/dL (6-20); Calcium 8.5 mg/dL (8.5-10.5); Carbon Dioxide 24 mmol/L (22-29); Chloride 109 mmol/L (98-107); Globulin 2.4 g/dL (1.3-4.6); Glomerular Filtration Rate 126.3 mL/min (90-130); Glucose 100 mg/dL (65-115); Osmolality Calculated 297 mOsm/kg (285-295); Sodium 144 mmol/L (136-145); Total Bilirubin 0.5 mg/dL (0.15-1.2); Total Protein 6.5 g/dL (6.6-8.7)
[2023-05-06 15:48] LABS: Potassium 2.7 mmol/L (3.5-5.1)
--- NOTE | 2023-05-06 15:59 | SUR.PHASEI ---
1556 Dr Riggs notified of 2.7 potassium. 80 mg potassium k-rider ordered to infuse over 8 hours.
--- NOTE | 2023-05-06 16:07 | ANE.PACU2 ---
Inpatient post-anesthesia follow up: Airway intact: Yes Vital signs: Temperature 97.8 F Pulse Rate 66 Respiratory Rate 18 Blood Pressure 137/76 Pulse Oximetry 95 Oxygen Delivery Me thod Room Air Oxygen Flow Rate 6 Fraction of Inspir ed Oxygen Hydration adequate: Yes Nausea and vomiting: No Pain level: 3 Mental status: Baseline
[2023-05-06] MEDS: lidocaine 1% 5 ML in potassium chloride premix 100 ML 26.25 ML IV ×2 (16:45→20:51)
[2023-05-06] MEDS: sodium chloride 0.9% 1,000 ML 125 ML IV ×2 (16:51→23:47)
[2023-05-06] MEDS: HYDROmorphone 1 mg/mL INJ 1 mL IVP ×3 (16:52→23:53)
[2023-05-07] VITALS (14 sets, daily range): BP systolic 94–121; BP diastolic 57–74; PULSE 64–73; RESP 16–18; TEMP 36.8–37.3; O2SAT 93–97
[2023-05-07] MEDS: piperacillin-tazobactam 3.375 GM in sodium chloride 0.9% (plus) 50 ML IV ×3 (02:43→18:05)
[2023-05-07] MEDS: HYDROmorphone 1 mg/mL INJ 1 mL IVP ×6 (02:44→20:21)
[2023-05-07 05:46] LABS: Basophils % 0.1 %; Hematocrit 33.8 % (36-47); Lymphocytes % 8.4 %; Mean Corpuscular HGB Conc 32.2 g/dL (30-55); Mean Corpuscular Hemoglobin 29.5 pg (27-33); Mean Corpuscular Volume 91.4 fl (85-98); Mean Platelet Volume 10.4 fL (7.4-10.4); Monocytes # 0.8 10^3/uL (0.2-0.9); Monocytes % 6.9 %; Neutrophils # 9.95 10^3/uL (1.8-7.7); Neutrophils % 84.3 %; Nucleated Red Blood Cells % 0 %; Platelet Count 203 10^3/cmm (157-399); Red Cell Distribution Width 13.4 % (12.1-15.1); White Blood Count 11.81 10^3/uL (3.29-11.43)
[2023-05-07] MEDS: heparin 5,000 unit/mL INJ 1 mL 5000 UNIT SUBCUT ×2 (05:47→18:05)
[2023-05-07 06:06] LABS: Anion Gap 12.8 (5-19); Blood Urea Nitrogen 11 mg/dL (6-20); Calcium 8.5 mg/dL (8.5-10.5); Carbon Dioxide 23 mmol/L (22-29); Chloride 111 mmol/L (98-107); Glomerular Filtration Rate 102.3 mL/min (90-130); Glucose 121 mg/dL (65-115); Osmolality Calculated 297 mOsm/kg (285-295); Potassium 3.8 mmol/L (3.5-5.1); Sodium 143 mmol/L (136-145)
[2023-05-07] MEDS: sodium chloride 0.9% 1,000 ML 125 ML IV ×2 (07:48→16:59)
[2023-05-07] MEDS: pantoprazole 40 mg SDV IVP (08:10)
--- NOTE | 2023-05-07 09:13 | PM.PN ---
Subjective Subjective: Patient seen and examined. Pain controlled. No flatus or bowel movement yet Vitals/I&O/Wt Last Vital Signs Temp 97.8 F 05/09/23 07:50 Pulse 71 05/09/23 07:50 Resp 14 05/09/23 08:28 BP 151/89 05/09/23 07:50 Pulse Ox 93 05/09/23 07:50 O2 Del Method Room Air 05/09/23 07:50 O2 Flow Rate 6 05/06/23 15:21 05/08/23 05/09/23 05/09/23 22:59 06:59 14:59 Intake Total 1000 / 1999 941.667 / 2941.667 Output Total 600 / 600 300 / 900 Balance 400 / 1400 641.667 / 2041.667 Weight last 48 hrs Weight 157 lb 6 oz Weight 142 lb Physical Exam Narrative: Abdomen: Soft, nondistended, appropriately tender to palpation, no guarding rebound or mass Incisions intact without erythema or exudate Urinary Catheter Management: Kennedy: Cath Placed During This Visit: yes, but has since been removed by the nurse Reason for Continuing Indwelling Catheter: Decision to DC Catheter Urinary Catheter Date of Insertion: 05/06/23 Urinary Catheter Time of Insertion: 13:50 Date Urinary Catheter Removed: 05/09/23 Time Urinary Catheter Discontinued: 05:18 Data 05/09/23 04:49 05/09/23 04:49 A&P Assessment and plan (1) Colonic mass: Plan Status post laparoscopic right hemicolectomy on 05/06/2023 Await return of bowel function Daily labs I-S use Ambulate Attestations Medical Necessity Statement*: Patient requires multiple more nights in the hospital for recovery after hemicolectomy. Coding Level of Care Code Acute Code for Chg Fwd Diagnoses Colonic mass K63.89
--- NOTE | 2023-05-07 09:19 | PC.PHAR ---
pt states she takes care of her own medications-pt states she uses timolol 1 drop bid rx filled 04/08/23 90d/s 1 drop daily-notes are made in the pharmacy comments
--- NOTE | 2023-05-07 09:54 | PC.CHAP ---
Pastoral Care Encounter/Spiritual Assessment Type of Contact [] Declined field marketing manager visit [] Patient/Family/Request visit [] Outpatient visit [] Follow-up visit [] Physician referral [] Code/Alert [] Routine visit [] Staff referral [] Actively dying [] Patient sleeping [] Family support [] [] Out of room [] Palliative care [] [x] Receiving care in room [] Pre-surgical visit [] Trauma [] Long length of stay [] ICU visit [] Other: Relational/Emotional Strength [] Patient feels connected with others/family/visitors/staff [] Distress [] Loneliness/isolation [] Abandonment Spirituality of Patient [] Person of [place] [] Attends Buddhism of their [place] [] Believes in Prayer [] Reads Bible or Restorationism materials [] There are Spiritual issues to be addressed Electronic Security Specialist Interventions [] Prayer [] Active listening [] Non-anxious presence [] Spiritual/emotional support [] Crisis/trauma care [] Spiritual counseling [] Bereavement support [] Provided bereavement packet [] Provided Bible/devotional materials [] Provided toy/stuffed animal, coloring book to patient or family member [] Provided Communion [] Anointing/[place] [] Salvation [] Completed spiritual assessment [] Other: Impact on Illness or Injury [] Angry [] Fearful [] Anxious [] Often cries [] Exhaustion [] Unable to work [] Unable to attend christian [] Unable to walk/stand [] Unable to read [] Unable to drive [] Unable to eat/drink [] Unable to sleep [] Unable to be with family [] Patient intubated [] Other: Summary Time spent with patient
[2023-05-07] MEDS: ondansetron 2 mg/ML SDV 2 mL 4 MG IVP (14:08)
[2023-05-08] VITALS (13 sets, daily range): BP systolic 120–136; BP diastolic 71–81; PULSE 67–91; RESP 15–18; TEMP 36.8–39.1; O2SAT 90–95
[2023-05-08] MEDS: sodium chloride 0.9% 1,000 ML 125 ML IV ×3 (00:05→17:34)
[2023-05-08] MEDS: HYDROmorphone 1 mg/mL INJ 1 mL IVP ×6 (00:05→20:03)
[2023-05-08] MEDS: acetaminophen 1,000 MG/100 ML PIGGYBACK 400 MG IV (00:20)
[2023-05-08 05:16] LABS: Basophils % 0.4 %; Hematocrit 30.8 % (36-47); Lymphocytes # 1.8 10^3/uL (0.8-4.8); Lymphocytes % 21.7 %; Mean Corpuscular HGB Conc 31.5 g/dL (30-55); Mean Corpuscular Hemoglobin 29.4 pg (27-33); Mean Corpuscular Volume 93.3 fl (85-98); Monocytes # 0.5 10^3/uL (0.2-0.9); Monocytes % 5.6 %; Neutrophils # 5.89 10^3/uL (1.8-7.7); Neutrophils % 71.9 %; Nucleated Red Blood Cells % 0 %; Platelet Count 178 10^3/cmm (157-399); Red Cell Distribution Width 13.9 % (12.1-15.1); White Blood Count 8.19 10^3/uL (3.29-11.43)
[2023-05-08 05:49] LABS: Anion Gap 13.5 (5-19); Blood Urea Nitrogen 10 mg/dL (6-20); Calcium 8.6 mg/dL (8.5-10.5); Carbon Dioxide 23 mmol/L (22-29); Chloride 110 mmol/L (98-107); Glomerular Filtration Rate 126.3 mL/min (90-130); Glucose 91 mg/dL (65-115); Osmolality Calculated 295 mOsm/kg (285-295); Potassium 3.5 mmol/L (3.5-5.1); Sodium 143 mmol/L (136-145)
[2023-05-08] MEDS: heparin 5,000 unit/mL INJ 1 mL 5000 UNIT SUBCUT ×2 (06:03→17:35)
[2023-05-08] MEDS: ondansetron 2 mg/ML SDV 2 mL 4 MG IVP ×2 (08:23→14:53)
[2023-05-08] MEDS: pantoprazole 40 mg SDV IVP (08:28)
--- NOTE | 2023-05-08 09:14 | PM.PN ---
Subjective Subjective: Still no bowel movement or flatus. Pain controlled Vitals/I&O/Wt Last Vital Signs Temp 97.8 F 05/09/23 07:50 Pulse 71 05/09/23 07:50 Resp 14 05/09/23 08:28 BP 151/89 05/09/23 07:50 Pulse Ox 93 05/09/23 07:50 O2 Del Method Room Air 05/09/23 07:50 O2 Flow Rate 6 05/06/23 15:21 05/08/23 05/09/23 05/09/23 22:59 06:59 14:59 Intake Total 1000 / 1999 941.667 / 2941.667 Output Total 600 / 600 300 / 900 Balance 400 / 1400 641.667 / 2041.667 Weight last 48 hrs Weight 157 lb 6 oz Weight 142 lb Physical Exam Narrative: Abdomen: Soft, mildly distended, appropriately tender to palpation, no guarding rebound or mass Incisions intact without erythema or exudate Urinary Catheter Management: Kennedy: Cath Placed During This Visit: yes, but has since been removed by the nurse Reason for Continuing Indwelling Catheter: Decision to DC Catheter Urinary Catheter Date of Insertion: 05/06/23 Urinary Catheter Time of Insertion: 13:50 Date Urinary Catheter Removed: 05/09/23 Time Urinary Catheter Discontinued: 05:18 Data 05/09/23 04:49 05/09/23 04:49 A&P Assessment and plan (1) Colonic mass: Plan Status post laparoscopic right hemicolectomy on 05/06/2023 Await return of bowel function Daily labs I-S use Ambulate Attestations Medical Necessity Statement*: Patient requires multiple more nights in the hospital for recovery after hemicolectomy. Coding Level of Care Code Acute Code for Chg Fwd Diagnoses Colonic mass K63.89
--- NOTE | 2023-05-08 11:12 | PC.CHAP ---
Pastoral Care Encounter/Spiritual Assessment Type of Contact [] Declined shipping technician visit [] Patient/Family/Request visit [] Outpatient visit [] Follow-up visit [] Physician referral [] Code/Alert [x] Routine visit [] Staff referral [] Actively dying [] Patient sleeping [] Family support [] [] Out of room [] Palliative care [] [] Receiving care in room [] Pre-surgical visit [] Trauma [] Long length of stay [] ICU visit [] Other: Relational/Emotional Strength [x] Patient feels connected with others/family/visitors/staff [] Distress [] Loneliness/isolation [] Abandonment Spirituality of Patient [] Person of [place] [] Attends Judaism of their [place] [] Believes in Prayer [] Reads Bible or Catholic materials [] There are Spiritual issues to be addressed Industry Segment Specialist Interventions [x] Prayer [x] Active listening [] Non-anxious presence [] Spiritual/emotional support [] Crisis/trauma care [] Spiritual counseling [] Bereavement support [] Provided bereavement packet [] Provided Bible/devotional materials [] Provided toy/stuffed animal, coloring book to patient or family member [] Provided Communion [] Anointing/[place] [] Salvation [] Completed spiritual assessment [] Other: Impact on Illness or Injury [] Angry [] Fearful [] Anxious [] Often cries [] Exhaustion [] Unable to work [] Unable to attend samaritan [] Unable to walk/stand [] Unable to read [] Unable to drive [] Unable to eat/drink [] Unable to sleep [] Unable to be with family [] Patient intubated [] Other: Summary Time spent with patient 10 min
[2023-05-09] VITALS (9 sets, daily range): BP systolic 137–156; BP diastolic 83–89; PULSE 69–80; RESP 14–18; TEMP 36.6–36.8; O2SAT 92–96
[2023-05-09] MEDS: ondansetron 2 mg/ML SDV 2 mL 4 MG IVP ×5 (01:06→20:38)
[2023-05-09] MEDS: sodium chloride 0.9% 1,000 ML 125 ML IV ×4 (01:06→20:33)
[2023-05-09] MEDS: HYDROmorphone 1 mg/mL INJ 1 mL IVP ×4 (01:07→20:38)
[2023-05-09 05:34] LABS: Basophils # 0.1 10^3/uL (0.0-0.1); Basophils % 0.6 %; Eosinophils # 0.1 10^3/uL (0.0-0.8); Eosinophils % 1.1 %; Hematocrit 32.6 % (36-47); Lymphocytes # 1.6 10^3/uL (0.8-4.8); Lymphocytes % 18.2 %; Mean Corpuscular HGB Conc 32.2 g/dL (30-55); Mean Corpuscular Hemoglobin 30.3 pg (27-33); Mean Corpuscular Volume 94.2 fl (85-98); Mean Platelet Volume 10.2 fL (7.4-10.4); Monocytes # 0.5 10^3/uL (0.2-0.9); Monocytes % 5.9 %; Neutrophils # 6.28 10^3/uL (1.8-7.7); Neutrophils % 73.5 %; Nucleated Red Blood Cells % 0 %; Platelet Count 210 10^3/cmm (157-399); Red Blood Count 3.46 10^6/uL (3.85-5.65); Red Cell Distribution Width 13.5 % (12.1-15.1); White Blood Count 8.53 10^3/uL (3.29-11.43)
[2023-05-09] MEDS: heparin 5,000 unit/mL INJ 1 mL 5000 UNIT SUBCUT ×2 (05:38→17:04)
[2023-05-09 05:52] LABS: Anion Gap 15.5 (5-19); Blood Urea Nitrogen 9 mg/dL (6-20); Calcium 8.7 mg/dL (8.5-10.5); Carbon Dioxide 20 mmol/L (22-29); Chloride 111 mmol/L (98-107); Glomerular Filtration Rate 126.3 mL/min (90-130); Glucose 73 mg/dL (65-115); Osmolality Calculated 293 mOsm/kg (285-295); Potassium 3.5 mmol/L (3.5-5.1); Sodium 143 mmol/L (136-145)
[2023-05-09] MEDS: pantoprazole 40 mg SDV IVP (08:27)
--- NOTE | 2023-05-09 09:15 | PM.PN ---
Subjective Subjective: Patient seen and examined. Pain controlled. No BM or flatus yet Vitals/I&O/Wt Last Vital Signs Temp 97.8 F 05/09/23 07:50 Pulse 71 05/09/23 07:50 Resp 14 05/09/23 08:28 BP 151/89 05/09/23 07:50 Pulse Ox 93 05/09/23 07:50 O2 Del Method Room Air 05/09/23 07:50 O2 Flow Rate 6 05/06/23 15:21 05/08/23 05/09/23 05/09/23 22:59 06:59 14:59 Intake Total 1000 / 1999 941.667 / 2941.667 Output Total 600 / 600 300 / 900 Balance 400 / 1400 641.667 / 2041.667 Weight last 48 hrs Weight 157 lb 6 oz Weight 142 lb Physical Exam Narrative: Abdomen: Soft, mildly distended, appropriately tender to palpation, no guarding rebound or mass Incisions intact without erythema or exudate Urinary Catheter Management: Kennedy: Cath Placed During This Visit: yes, but has since been removed by the nurse Reason for Continuing Indwelling Catheter: Decision to DC Catheter Urinary Catheter Date of Insertion: 05/06/23 Urinary Catheter Time of Insertion: 13:50 Date Urinary Catheter Removed: 05/09/23 Time Urinary Catheter Discontinued: 05:18 Data 05/09/23 04:49 05/09/23 04:49 A&P Assessment and plan (1) Colonic mass: Plan Status post laparoscopic right hemicolectomy on 05/06/2023 Await return of bowel function Daily labs I-S use Ambulate Attestations Medical Necessity Statement*: Patient requires at least 1 more night in the hospital for recovery after hemicolectomy. Awaiting return of bowel function Coding Level of Care Code Acute Code for Chg Fwd Diagnoses Colonic mass K63.89
--- NOTE | 2023-05-09 11:10 | PC.SOCIAL ---
IMM Update pg 2 of IMM updated and reviewed w/ patient. Copy provided and copy dated, initialed and placed in chart.
[2023-05-10] VITALS (7 sets, daily range): BP systolic 136–167; BP diastolic 79–102; PULSE 71–80; RESP 15–18; TEMP 36.6–37.1; O2SAT 95–97
[2023-05-10] MEDS: ondansetron 2 mg/ML SDV 2 mL 4 MG IVP ×4 (03:51→21:58)
[2023-05-10] MEDS: heparin 5,000 unit/mL INJ 1 mL 5000 UNIT SUBCUT ×2 (06:10→17:58)
[2023-05-10 08:24] LABS: Basophils % 0.3 %; Lymphocytes # 0.9 10^3/uL (0.8-4.8); Lymphocytes % 9.3 %; Mean Corpuscular HGB Conc 33.4 g/dL (30-55); Mean Corpuscular Hemoglobin 29.7 pg (27-33); Mean Platelet Volume 10.1 fL (7.4-10.4); Monocytes # 0.4 10^3/uL (0.2-0.9); Neutrophils # 8.67 10^3/uL (1.8-7.7); Neutrophils % 85.8 %; Nucleated Red Blood Cells % 0 %; Platelet Count 310 10^3/cmm (157-399); Red Blood Count 4.27 10^6/uL (3.85-5.65); Red Cell Distribution Width 13.1 % (12.1-15.1)
[2023-05-10 09:00] LABS: Anion Gap 14.6 (5-19); Blood Urea Nitrogen 7 mg/dL (6-20); Carbon Dioxide 22 mmol/L (22-29); Chloride 109 mmol/L (98-107); Glomerular Filtration Rate 126.3 mL/min (90-130); Glucose 112 mg/dL (65-115); Magnesium 2.1 mg/dL (1.7-2.3); Osmolality Calculated 293 mOsm/kg (285-295); Potassium 3.6 mmol/L (3.5-5.1); Sodium 142 mmol/L (136-145)
--- NOTE | 2023-05-10 10:10 | PM.PN ---
Subjective Subjective: Patient seen and examined. Having bowel movements overnight. Denies any nausea or vomiting. Denies any flatus. Vitals/I&O/Wt Last Vital Signs Temp 98.1 F 05/11/23 07:09 Pulse 73 05/11/23 07:09 Resp 17 05/11/23 07:09 BP 164/89 05/11/23 07:09 Pulse Ox 97 05/11/23 07:09 O2 Del Method Room Air 05/11/23 07:09 O2 Flow Rate 6 05/10/23 08:00 05/10/23 05/11/23 05/11/23 22:59 06:59 14:59 Intake Total 240 / 2480 1000 / 3480 480 / 480 Balance 240 / 2480 1000 / 3480 480 / 480 Weight last 48 hrs Weight 158 lb 8 oz Weight 160 lb 1 oz Physical Exam Narrative: Abdomen: Soft, mildly distended, appropriately tender to palpation, no guarding rebound or mass Incisions intact without erythema or exudate Urinary Catheter Management: Kennedy: Cath Placed During This Visit: yes, but has since been removed by the nurse Reason for Continuing Indwelling Catheter: Assist healing open wound Urinary Catheter Date of Insertion: 05/06/23 Urinary Catheter Time of Insertion: 13:50 Date Urinary Catheter Removed: 05/09/23 Time Urinary Catheter Discontinued: 05:18 Data 05/10/23 08:09 05/10/23 08:09 A&P Assessment and plan (1) Colonic mass: Plan Status post laparoscopic right hemicolectomy on 05/06/2023 Clear liquid diet Daily labs I-S use Ambulate Attestations Medical Necessity Statement*: Patient requires at least 1 more night in the hospital for recovery after hemicolectomy. Awaiting return of bowel function Coding Level of Care Code Acute Code for Chg Fwd Diagnoses Colonic mass K63.89
[2023-05-10] MEDS: HYDROmorphone 1 mg/mL INJ 1 mL IVP (10:12)
[2023-05-10] MEDS: pantoprazole 40 mg SDV IVP (10:25)
--- NOTE | 2023-05-10 10:27 | PC.SOCIAL ---
IMM Update pg 2 of [facility] udpated and reviewed w/ patient. Copy provided and Copy in chart dated and initialed.
[2023-05-10] MEDS: sodium chloride 0.9% 1,000 ML 125 ML IV (18:12)
[2023-05-11] VITALS (8 sets, daily range): BP systolic 125–164; BP diastolic 70–96; PULSE 70–85; RESP 15–18; TEMP 36.6–37.6; O2SAT 95–98
[2023-05-11] MEDS: sodium chloride 0.9% 1,000 ML 125 ML IV ×3 (03:28→20:34)
[2023-05-11] MEDS: ondansetron 2 mg/ML SDV 2 mL 4 MG IVP ×2 (04:43→10:41)
--- NOTE | 2023-05-11 04:45 | PC.NURSE ---
pt reports that they have passed gas.
[2023-05-11] MEDS: heparin 5,000 unit/mL INJ 1 mL 5000 UNIT SUBCUT ×2 (05:59→17:13)
[2023-05-11] MEDS: pantoprazole 40 mg SDV IVP (09:33)
--- NOTE | 2023-05-11 10:11 | PM.PN ---
Subjective Subjective: Patient seen and examined. Had multiple bowel movements and passing flatus. She does report nausea and vomiting overnight. She is unsure of any blood in her vomit or stool Vitals/I&O/Wt Last Vital Signs Temp 98.1 F 05/11/23 07:09 Pulse 73 05/11/23 07:09 Resp 17 05/11/23 07:09 BP 164/89 05/11/23 07:09 Pulse Ox 97 05/11/23 07:09 O2 Del Method Room Air 05/11/23 07:09 O2 Flow Rate 6 05/10/23 08:00 05/10/23 05/11/23 05/11/23 22:59 06:59 14:59 Intake Total 240 / 2480 1000 / 3480 480 / 480 Balance 240 / 2480 1000 / 3480 480 / 480 Weight last 48 hrs Weight 158 lb 8 oz Weight 160 lb 1 oz Physical Exam Narrative: Abdomen: Soft, mildly distended, appropriately tender to palpation, no guarding rebound or mass Incisions intact without erythema or exudate Urinary Catheter Management: Kennedy: Cath Placed During This Visit: yes, but has since been removed by the nurse Reason for Continuing Indwelling Catheter: Assist healing open wound Urinary Catheter Date of Insertion: 05/06/23 Urinary Catheter Time of Insertion: 13:50 Date Urinary Catheter Removed: 05/09/23 Time Urinary Catheter Discontinued: 05:18 Data 05/10/23 08:09 05/10/23 08:09 A&P Assessment and plan (1) Colonic mass: Plan Status post laparoscopic right hemicolectomy on 05/06/2023 Full liquid diet Daily labs I-S use Ambulate Attestations Medical Necessity Statement*: Patient requires at least 1 more night in the hospital for recovery after hemicolectomy. She is not tolerating diet today Coding Level of Care Code Acute Code for Chg Fwd Diagnoses Colonic mass K63.89
[2023-05-11 10:52] LABS: Basophils % 0.3 %; Eosinophils # 0.1 10^3/uL (0.0-0.8); Hematocrit 32.3 % (36-47); Lymphocytes # 1.1 10^3/uL (0.8-4.8); Lymphocytes % 19.5 %; Mean Corpuscular HGB Conc 34.1 g/dL (30-55); Mean Corpuscular Hemoglobin 29.5 pg (27-33); Mean Corpuscular Volume 86.6 fl (85-98); Mean Platelet Volume 9.9 fL (7.4-10.4); Monocytes # 0.6 10^3/uL (0.2-0.9); Monocytes % 9.9 %; Neutrophils # 4.01 10^3/uL (1.8-7.7); Neutrophils % 68.8 %; Nucleated Red Blood Cells % 0 %; Platelet Count 252 10^3/cmm (157-399); Red Blood Count 3.73 10^6/uL (3.85-5.65); Red Cell Distribution Width 12.9 % (12.1-15.1); White Blood Count 5.84 10^3/uL (3.29-11.43)
[2023-05-11 11:40] LABS: Anion Gap 9.8 (5-19); Blood Urea Nitrogen 3 mg/dL (6-20); Carbon Dioxide 29 mmol/L (22-29); Chloride 106 mmol/L (98-107); Glomerular Filtration Rate 163.4 mL/min (90-130); Glucose 117 mg/dL (65-115); Osmolality Calculated 292 mOsm/kg (285-295); Sodium 142 mmol/L (136-145)
[2023-05-11 11:48] LABS: Potassium 2.8 mmol/L (3.5-5.1)
[2023-05-11] MEDS: lidocaine 1% 5 ML in potassium chloride premix 100 ML 26.25 ML IV ×2 (12:58→17:08)
[2023-05-11] MEDS: acetaminophen 325 mg Tablet 650 MG PO (20:40)
[2023-05-12 04:00] VITALS: BP 148/83; PULSE 72; RESP 14; TEMP 36.6; O2SAT 95
[2023-05-12 04:38] LABS: Basophils % 0.4 %; Eosinophils # 0.1 10^3/uL (0.0-0.8); Eosinophils % 1.7 %; Hematocrit 31.6 % (36-47); Lymphocytes % 14.7 %; Mean Corpuscular HGB Conc 33.9 g/dL (30-55); Mean Corpuscular Volume 88.5 fl (85-98); Mean Platelet Volume 10.5 fL (7.4-10.4); Monocytes # 0.7 10^3/uL (0.2-0.9); Monocytes % 10.2 %; Neutrophils # 5.04 10^3/uL (1.8-7.7); Neutrophils % 72.4 %; Nucleated Red Blood Cells % 0 %; Platelet Count 236 10^3/cmm (157-399); Red Blood Count 3.57 10^6/uL (3.85-5.65); Red Cell Distribution Width 13.2 % (12.1-15.1); White Blood Count 6.96 10^3/uL (3.29-11.43)
[2023-05-12 04:58] LABS: Anion Gap 11.9 (5-19); Blood Urea Nitrogen 3 mg/dL (6-20); Calcium 8.7 mg/dL (8.5-10.5); Carbon Dioxide 28 mmol/L (22-29); Chloride 106 mmol/L (98-107); Glomerular Filtration Rate 163.4 mL/min (90-130); Glucose 116 mg/dL (65-115); Magnesium 1.7 mg/dL (1.7-2.3); Osmolality Calculated 294 mOsm/kg (285-295); Sodium 143 mmol/L (136-145)
[2023-05-12 05:04] LABS: Potassium 2.9 mmol/L (3.5-5.1)
[2023-05-12] MEDS: lidocaine 1% 5 ML in potassium chloride premix 100 ML 26.25 ML IV (05:21)
[2023-05-12] MEDS: heparin 5,000 unit/mL INJ 1 mL 5000 UNIT SUBCUT (05:21)
[2023-05-12] MEDS: sodium chloride 0.9% 1,000 ML 125 ML IV (05:21)
[2023-05-12 07:29] VITALS: BP 148/82; PULSE 74; RESP 21; TEMP 36.4; O2SAT 97
[2023-05-12] MEDS: pantoprazole 40 mg SDV IVP (09:27)
--- NOTE | 2023-05-12 11:37 | PM.DCS ---
Discharge Providers Date of Admission: 05/06/23 14:59 Date of Discharge: May 12, 2023 Attending Provider at Admission: Angus Riggs DO Attending Provider at Discharge: Angus Riggs DO Primary Care Provider: Laurel Poole MD Diagnoses at Discharge Discharge Diagnosis (1) Colonic mass: Status: Acute Reason for Visit Reason for Visit: Brief History: Unresectable colon mass Hospital Course Hospital Course Who was found to have a tubular villous adenoma that could not be resected endoscopically, in the cecum with focal high-grade dysplasia. She underwent a laparoscopic right hemicolectomy and was discharged home in good condition on postop day 6 Physical Exam Narrative: General : Patient is well developed , no acute distress, oriented x3 Head : Normal cephalic, a-traumatic. Ears : Pinnae and external canal are normal. Hearing is normal. Eyes : PERRLA, Sclera and injection are normal. No conjunctival discharge. Nose : Mucous membranes are without erythema. Throat : buccal mucosa is normal, gums are without significant recession or hypertrophy. Lungs : Equal chest rise bilaterally, no use of accessory muscles, trachea is midline. Cor : Rate and rhythm are normal. Abdomen : Soft, ND, appropriately tender, no g/r/m Extremities : No edema, no cyanosis or clubbing, dorsalis pedis pulses are present bilaterally, non-tender to palpation of calves. Upper extremities are normal bilaterally. Back : non-tender to palpation, no CVA tenderness. Neuro : CN II - XII intact, Upper and lower extremities have equal and full strength Urinary Catheter Management: Kennedy: Cath Placed During This Visit: yes, but has since been removed by the nurse Reason for Continuing Indwelling Catheter: Assist healing open wound Urinary Catheter Date of Insertion: 05/06/23 Urinary Catheter Time of Insertion: 13:50 Date Urinary Catheter Removed: 05/09/23 Time Urinary Catheter Discontinued: 05:18 Discharge Data Studies Completed and Pending Completed Studies During Hospitalization Category Date Time Status CXRP [XR chest 1V portable [id number]] Routine Exams 05/06/23 14:06 Completed Pathology: Surgical [PTH] Routine Pth 05/06/23 14:52 Completed Pending at discharge Category Date Time Status BMP [Basic Metabolic Panel] AM LABS Lab 05/13/23 04:00 Ordered BMP [Basic Metabolic Panel] AM LABS Lab 05/14/23 04:00 Ordered CBC Auto Diff [Complete Blood Count w/Auto] AM LABS Lab 05/13/23 04:00 Ordered CBC Auto Diff [Complete Blood Count w/Auto] AM LABS Lab 05/14/23 04:00 Ordered Magnesium AM LABS Lab 05/13/23 04:00 Ordered Magnesium AM LABS Lab 05/14/23 04:00 Ordered Radiology Impressions Chest X-Ray 05/06/23 14:06 IMPRESSION: 1. Nasogastric tube is well within the stomach. 2. Small focal areas of scarring and/or atelectasis are seen in both lower lung centeno. Laboratory Results WBC 6.96 10^3/uL (3.29-11.43) 05/12/23 03:25 RBC 3.57 10^6/uL (3.85-5.65) L 05/12/23 03:25 Hgb 10.70 g/dL (11.27-16.99) L 05/12/23 03:25 Hct 31.6 % (36-47) L 05/12/23 03:25 MCV 88.5 fl (85-98) 05/12/23 03:25 MCH 30.0 pg (27-33) 05/12/23 03:25 MCHC 33.9 g/dL (30-55) 05/12/23 03:25 RDW 13.2 % (12.1-15.1) 05/12/23 03:25 Plt Count 236 10^3/cmm (157-399) 05/12/23 03:25 MPV 10.5 fL (7.4-10.4) H 05/12/23 03:25 Neut % (Auto) 72.4 % 05/12/23 03:25 Lymph % (Auto) 14.7 % 05/12/23 03:25 [place] % (Auto) 10.2 % 05/12/23 03:25 Eos % (Auto) 1.7 % 05/12/23 03:25 Baso % (Auto) 0.4 % 05/12/23 03:25 Neut # (Auto) 5.04 10^3/uL (1.8-7.7) 05/12/23 03:25 Lymph # (Auto) 1.0 10^3/uL (0.8-4.8) 05/12/23 03:25 [place] # (Auto) 0.7 10^3/uL (0.2-0.9) 05/12/23 03:25 Eos # (Auto) 0.1 10^3/uL (0.0-0.8) 05/12/23 03:25 Baso # (Auto) 0.0 10^3/uL (0.0-0.1) 05/12/23 03:25 Nucleated RBC % (auto) 0 % 05/12/23 03:25 Nucleated RBCs # 0.0 /100WBC 05/12/23 03:25 Sodium 143 mmol/L (136-145) 05/12/23 03:25 Potassium 2.9 mmol/L (3.5-5.1) L 05/12/23 03:25 Chloride 106 mmol/L (98-107) 05/12/23 03:25 Carbon Dioxide 28 mmol/L (22-29) 05/12/23 03:25 Anion Gap 11.9 (5-19) 05/12/23 03:25 BUN 3 mg/dL (6-20) L 05/12/23 03:25 Creatinine 0.4 mg/dL (0.5-0.9) L 05/12/23 03:25 GFR Calculation 163.4 mL/min (90-130) H 05/12/23 03:25 Glucose 116 mg/dL (65-115) H 05/12/23 03:25 Calculated Osmolality 294 mOsm/kg (285-295) 05/12/23 03:25 Calcium 8.7 mg/dL (8.5-10.5) 05/12/23 03:25 Magnesium 1.7 mg/dL (1.7-2.3) 05/12/23 03:25 Total Bilirubin 0.5 mg/dL (0.15-1.2) 05/06/23 14:17 AST 6 U/L (0-32) 05/06/23 14:17 ALT 8 U/L (0-33) 05/06/23 14:17 Alkaline Phosphatase 51 U/L (35-105) 05/06/23 14:17 Total Protein 6.5 g/dL (6.6-8.7) L 05/06/23 14:17 Albumin 4.1 g/dL (3.5-5.2) 05/06/23 14:17 Globulin 2.4 g/dL (1.3-4.6) 05/06/23 14:17 Blood Type O Positive 05/06/23 11:10 Rho(D) Type Positive 05/06/23 11:10 Antibody Screen Negative 05/06/23 11:10 Procedures Performed Laparoscopic right hemicolectomy Vitals Last Vital Signs Temp 97.5 F L 05/12/23 07:29 Pulse 74 05/12/23 07:29 Resp 21 H 05/12/23 07:29 BP 148/82 05/12/23 07:29 Pulse Ox 97 05/12/23 07:29 O2 Del Method Room Air 05/12/23 07:29 O2 Flow Rate 6 05/12/23 08:00 Discharge Plan Discharge Patient Disposition: Home Prescriptions: New hydrocodone-acetaminophen 10-325 mg tablet 1 tab PO Q6H PRN (Reason: pain) Qty: 20 0RF Rx Instructions: May take half of a tab at a time Colace 100 mg capsule 100 mg PO BID Qty: 14 0RF Continued timolol maleate 0.5 % drops 1 drop ophthalmic (eye) BID Rx Instructions: left eye Systane Balance 0.6 % drops 1 drop ophthalmic (eye) .3 OR 4 TIMES A DAY Systane Gel 0.3 % gel 1 drop ophthalmic (eye) BEDTIME (DME) BILATERAL WRIST SPLINT See Rx Instructions .Route .MEDSUPPLY Qty: 1 0RF Rx Instructions: As directed ascorbate calcium (vitamin C) 500 mg tablet 500 mg PO DAILY polyethylene glycol 3350 [Miralax] 17 gram/dose powder 17 g PO DAILY PRN (Reason: constipation) Qty: 510 0RF Rx Instructions: Mixed with 8 ounces water or juice triamcinolone acetonide 0.1 % cream 1 applic topical BID PRN (Reason: itching) Qty: 454 0RF losartan-hydrochlorothiazide 100-25 mg tablet 1 tab PO DAILY 90 Days Qty: 90 1RF loratadine 10 mg tablet 10 mg PO DAILY 90 Days Qty: 90 3RF fluticasone propionate 50 mcg/actuation spray,suspension 1 spray intranasal Q12H Qty: 15.8 11RF Rx Instructions: administer into each nostril cinnamon bark [Cinnamon] 500 mg Capsule 500 mg PO DAILY omega-3 fatty acids 1,000 mg Capsule 1,000 mg PO DAILY sertraline 50 mg tablet 50 mg PO QAM Vitamin D3 125 mcg (5,000 unit) Tablet 250 mcg PO DAILY Discharge Orders: Discharge Order (Routine); Ordered 05/12/23 Ordered By: Angus Riggs Referrals: Angus Riggs DO [Physician] - 1 week (In office on 05/21/2023) Discharge Diet: Advance as tolerated Discharge Activity: Resume usual activity Patient Instructions: Opioid Safety Activity Restrictions/Additional Instructions: Do not soak incisions underwater for 2 weeks. Shower daily. No lifting over 15 pounds for total of 6 weeks. Discharge Attestations Time Spent in Discharge Care*: less than 30 min Quality Metrics Clinical Quality Measures [ No reported AMI, CVA or VTE this stay] Coding Level of Care Code Acute Code for Chg Fwd Diagnoses Colonic mass K63.89
[2023-05-12 12:00] VITALS: BP 167/90; PULSE 91; RESP 20; TEMP 36.7; O2SAT 98
--- NOTE | 2023-05-12 13:44 | PC.NURSE ---
vida pending arrival of mona
[2023-05-12] MEDS: ondansetron 2 mg/ML SDV 2 mL 4 MG IVP (14:06)
--- NOTE | 2023-05-12 14:12 | PC.NURSE ---
Luigi called into [facility] pharmacy.
[2023-05-12 14:44] VITALS: BP 167/90; PULSE 91; RESP 18; TEMP 36.7; O2SAT 98
== END 2023-05-12 14:25 | disposition home or self-care (01) | DRG 330 ==
LOC: MEDSURG 16:34
PROVIDERS: Anesthesiology; Admitting Provider Surgery; PCP Family Medicine; Visit Provider Surgery
PROC: 0DTF4ZZ Resection of Right Large Intestine, Percutaneous Endoscopic Approach (ICD-10-PCS; CPT 44205; principal; 2023-05-06 12:30)
DX: D12.2 Benign neoplasm of ascending colon (principal); K42.0 Umbilical hernia with obstruction, without gangrene; F41.1 Generalized anxiety disorder; I10 Essential (primary) hypertension; E78.2 Mixed hyperlipidemia
CPT/HCPCS: 36415; 51702; 71045; 80048; 80053; 83735; 85025; 86850; 86900; 88309; 96372; 97116; 97161; 97530; 99213; C9113; J0131; J0330; J1100; J1170; J1644; J2250; J2405; J2543; J2704; J3010; J3480; J3490; J7030; P9045

== ENCOUNTER → 2023-05-14 12:10 | Outpatient (BNVA) | payer MEDICARE, SELFPAY | PROVIDERS: PCP Family Medicine; Visit Provider Family Medicine | DX: E87.6 Hypokalemia (principal); I10 Essential (primary) hypertension; K63.89 Other specified diseases of intestine; Z09 Encounter for follow-up examination after completed treatment for conditions other than malignant neoplasm; K59.03 Drug induced constipation; T40.2X5A Adverse effect of other opioids, initial encounter | CPT/HCPCS: 80048; 83735 ==

== ENCOUNTER → 2023-05-21 10:15 | Outpatient (BNVA) | payer MEDICARE, SELFPAY | PROVIDERS: PCP Family Medicine; Visit Provider Surgery | DX: Z90.49 Acquired absence of other specified parts of digestive tract (principal); E87.6 Hypokalemia; Z98.890 Other specified postprocedural states | CPT/HCPCS: 99024 ==

== ENCOUNTER → 2023-05-29 08:45 | Outpatient (BNVA) | payer MEDICARE, SELFPAY | PROVIDERS: PCP Family Medicine; Visit Provider Family Medicine | DX: E78.2 Mixed hyperlipidemia (principal); E87.6 Hypokalemia | CPT/HCPCS: 80048 ==

== ENCOUNTER 2023-06-11 11:13 | Outpatient (CLI) | payer MEDICARE, SELFPAY ==
[2023-06-11 12:02] LABS: Anion Gap 11.1 (5-19); Blood Urea Nitrogen 11 mg/dL (6-20); Calcium 9.8 mg/dL (8.5-10.5); Carbon Dioxide 29 mmol/L (22-29); Chloride 101 mmol/L (98-107); Glomerular Filtration Rate 126.3 mL/min (90-130); Glucose 116 mg/dL (65-115); Osmolality Calculated 284 mOsm/kg (285-295); Potassium 4.1 mmol/L (3.5-5.1); Sodium 137 mmol/L (136-145)
--- NOTE | 2023-06-11 12:53 | MM_ITS ---
WS: [id number] BILATERAL 3D TOMOSYNTHESIS DIGITAL SCREENING MAMMOGRAPHY WITH CAD CLINICAL INFORMATION: SCREENING HISTORY: Screening mammogram. No current complaints. COMPARISON: 05/17/2022 TECHNIQUE: Bilateral CC and MLO views. FINDINGS: Scattered fibroglandular densities bilaterally. No suspicious focal mass, asymmetry, calcifications, or architectural distortion. No evidence of malignancy. Incidental punctate calcifications. Vascular calcification. IMPRESSION: MM/[place] [id number] BI-RADS: 2-Benign FOLLOW UP: 1 Year Follow-up Recommend return to annual screening mammography.
== END 2023-06-11 11:14 | disposition home or self-care (01) ==
PROVIDERS: Absent Provider Surgery; PCP Family Medicine; Visit Provider Family Medicine
DX: Z12.31 Encounter for screening mammogram for malignant neoplasm of breast (principal); E87.6 Hypokalemia
CPT/HCPCS: 77063; 77067; 80048

== ENCOUNTER → 2023-07-26 09:22 | Outpatient (BNVA) | payer MEDICARE, SELFPAY | PROVIDERS: PCP Family Medicine; Visit Provider Family Medicine | DX: I10 Essential (primary) hypertension (principal); E78.2 Mixed hyperlipidemia; J98.8 Other specified respiratory disorders; B97.89 Other viral agents as the cause of diseases classified elsewhere; E87.6 Hypokalemia | CPT/HCPCS: 80048; 80061; 87400 ==

== ENCOUNTER → 2023-08-15 08:58 | Outpatient (BNVA) | payer MEDICARE, SELFPAY | PROVIDERS: PCP Family Medicine; Referring Provider Family Medicine; Visit Provider Family Medicine | DX: E87.6 Hypokalemia (principal) | CPT/HCPCS: 80048 ==

== ENCOUNTER → 2024-01-27 09:22 | Outpatient (BNVA) | payer MEDICARE, SELFPAY | PROVIDERS: PCP Family Medicine; Visit Provider Family Medicine | DX: I10 Essential (primary) hypertension (principal) | CPT/HCPCS: 80048 ==

== ENCOUNTER 2024-05-13 07:39 | Day surgery (SDC) | payer MEDICARE, SELFPAY ==
[2024-05-13 07:55] VITALS: BP 117/91; PULSE 87; RESP 18; TEMP 36.3; O2SAT 98; BMI 29.2
[2024-05-13] MEDS: sodium chloride 0.9% 1,000 ML 30 ML IV (08:11)
--- NOTE | 2024-05-13 09:09 | PM.HP ---
Providers/Chief Complaint Primary Care Provider: Laurel Poole MD Chief Complaint: Z90.49 History of Present Illness Nathaly Swenson is a 59 year old female Review of Systems General: Reports: 10 or more systems reviewed and unremarkable except in HPI and below Medications/Allergies Home Medications Medication Instructions Recorded Confirmed Last Taken Type artificial tears(hypromellose) 0.3 1 drop ophthalmic (eye) BEDTIME 09/29/19 05/13/24 05/13/24 History % eye gel (Systane Gel) propylene glycol 0.6 % eye drops 1 drop ophthalmic (eye) .3 OR 4 09/29/19 05/13/24 05/12/24 History (Systane Balance) TIMES A DAY timolol maleate 0.5 % eye drops 1 drop ophthalmic (eye) BID 09/29/19 05/13/24 05/12/24 History BILATERAL WRIST SPLINT #1 ea 03/26/22 05/13/24 03/21/23 Rx polyethylene glycol 3350 17 17 g PO DAILY PRN constipation 05/30/22 05/13/24 03/21/23 Rx gram/dose oral powder (Miralax) #510 grams omega-3 fatty acids 1,000 mg 1,000 mg PO DAILY 05/07/23 05/13/24 05/12/24 History capsule fluticasone propionate 50 1 spray intranasal Q12H #15.8 mL 01/27/24 05/13/24 05/12/24 Rx mcg/actuation nasal spray,suspension loratadine 10 mg tablet 10 mg PO DAILY 90 days #90 tabs 01/27/24 05/13/24 05/12/24 Rx losartan 100 1 tab PO DAILY 90 days #90 tabs 01/27/24 05/13/24 05/12/24 Rx mg-hydrochlorothiazide 25 mg tablet potassium chloride 8 mEq 8 meq PO TID 90 days #270 caps 01/27/24 05/13/24 05/12/24 Rx capsule,extended release sertraline 50 mg tablet See Rx Instructions .Route 01/27/24 05/13/24 05/12/24 Rx .COMPLEX #90 tabs amoxicillin 500 mg tablet 500 mg PO BID #14 tabs 05/06/24 05/13/24 05/12/24 Rx cvkewjwt-cpzpfxx-exqp-lutein tablet 1 tab PO DAILY 0905/13/24 05/12/24 History Allergies Allergy/AdvReac Type Severity Reaction Status Date / Time diphenhydramine Allergy rash Verified 05/13/24 07:58 [From Benadryl] ibuprofen AdvReac Intermediate hives Verified 05/13/24 07:58 aspirin AdvReac Mild hives Verified 05/13/24 07:58 PFSH Acute PFSH: Medical History (Updated 05/13/24 @ 09:10 by Angus Riggs DO) High grade dysplasia in colonic adenoma Trigger thumb, right thumb Left carpal tunnel syndrome Cubital tunnel syndrome on right Right carpal tunnel syndrome Mixed hyperlipidemia Seasonal allergic conjunctivitis Glaucoma Hypertension ALANA (generalized anxiety disorder) Surgical History Hx of right hemicolectomy 05/06/23 Dr. Riggs Hx of colonoscopy 03/22/23 Dr. Riggs Hx of carpal tunnel repair bilateral- Dr Lunsford No pertinent past surgical history Family History Other Cancer Heart disease Social History Smoking and tobacco/nicotine status: never used tobacco/nicotine Alcohol intake: never Substance/Drug Use: never Female Reproductive History: Spontaneous abortions: No Vitals/I&O/Wt Last Vital Signs Temp 97.4 F L 05/13/24 07:55 Pulse 87 05/13/24 07:55 Resp 18 05/13/24 07:55 BP 117/91 05/13/24 07:55 Pulse Ox 98 05/13/24 07:55 O2 Del Method Room Air 05/13/24 07:55 Weight last 48 hrs Weight 150 lb A&P Assessment and plan (1) Hx of right hemicolectomy: Plan Screening colonoscopy The risks and benefits of the procedure, including bleeding, infection, intestinal perforation requiring surgery, missed lesion were explained to the patient. The patient is understanding of the risks and wishes to proceed. Attestations Medical Necessity Statement*: Home Coding Level of Care Code Acute Code for Chg Fwd Diagnoses Hx of right hemicolectomy Z90.49
--- NOTE | 2024-05-13 09:17 | P.ANESASSM_ITS ---
Pre-Anesthetic Assessment Height/Weight: Height 1.52 m Weight 68.039 kg Temp Pulse Resp BP Pulse Ox O2 Del Method 97.4 F L 87 18 117/91 98 Room Air 05/13/24 07:55 05/13/24 07:55 05/13/24 07:55 05/13/24 07:55 05/13/24 07:55 05/13/24 07:55 Preop Diagnosis: H/O right hemicoloectomy Operation Date: 05/13/24 09:00 Proposed Procedures p Colonoscopy - 88868, g0105,z90.49(Not Applicable) - Angus Riggs DO Familial anesthetic complications: none Was Beta Zhang taken within 24 hours: N/A Was Clonidine taken within 24 hours: N/A Last intake: Intake Last Liquid Date 05/12/24 Last Liquid Time 22:15 Last Solid Date 05/11/24 Last Solid Time 21:00 Social No alcohol and No tobacco Exam alert and oriented x 3 Airway Submandibular: within normal limits Cervical ROM: within normal limits Mallampati: Class I Dentition: false History/ROS No significant history except as noted Pulmonary None reported CV/HEM Hypertension None reported Hepatic None reported GI None reported right hemicolectomy 04/2023 by Oneil [address] Hyperlipidemia [facility] None reported Neuropsych None reported Anesthetic Plan ASA status: 2 Anesthesia: Anesthesia Evaluation, General and MAC Medications/Allergies Home Medications Medication Instructions Recorded Confirmed Last Taken Type artificial tears(hypromellose) 0.3 1 drop ophthalmic (eye) BEDTIME 09/29/19 05/13/24 05/13/24 History % eye gel (Systane Gel) propylene glycol 0.6 % eye drops 1 drop ophthalmic (eye) .3 OR 4 09/29/19 05/13/24 05/12/24 History (Systane Balance) TIMES A DAY timolol maleate 0.5 % eye drops 1 drop ophthalmic (eye) BID 09/29/19 05/13/24 05/12/24 History BILATERAL WRIST SPLINT #1 ea 03/26/22 05/13/24 03/21/23 Rx polyethylene glycol 3350 17 17 g PO DAILY PRN constipation 05/30/22 05/13/24 03/21/23 Rx gram/dose oral powder (Miralax) #510 grams omega-3 fatty acids 1,000 mg 1,000 mg PO DAILY 05/07/23 05/13/24 05/12/24 History capsule fluticasone propionate 50 1 spray intranasal Q12H #15.8 mL 01/27/24 05/13/24 05/12/24 Rx mcg/actuation nasal spray,suspension loratadine 10 mg tablet 10 mg PO DAILY 90 days #90 tabs 01/27/24 05/13/24 05/12/24 Rx losartan 100 1 tab PO DAILY 90 days #90 tabs 01/27/24 05/13/24 05/12/24 Rx mg-hydrochlorothiazide 25 mg tablet potassium chloride 8 mEq 8 meq PO TID 90 days #270 caps 01/27/24 05/13/24 05/12/24 Rx capsule,extended release sertraline 50 mg tablet See Rx Instructions .Route 01/27/24 05/13/24 05/12/24 Rx .COMPLEX #90 tabs amoxicillin 500 mg tablet 500 mg PO BID #14 tabs 05/06/24 05/13/24 05/12/24 Rx rugrkoow-qwvsdmu-gori-lutein tablet 1 tab PO DAILY 05/11/24 05/13/24 05/12/24 History Allergies Allergy/AdvReac Type Severity Reaction Status Date / Time diphenhydramine Allergy rash Verified 05/13/24 07:58 [From Benadryl] ibuprofen AdvReac Intermediate hives Verified 05/13/24 07:58 aspirin AdvReac Mild hives Verified 05/13/24 07:58 Current Medications Generic Name Dose Route Start Last Admin Trade Name Freq PRN Reason Stop Dose Admin Sodium Chloride 1,000 mls @ 30 mls/hr 05/13/24 07:45 05/13/24 08:11 Sodium Chloride 0.9% IV 05/14/24 07:44 30 mls/hr .Q24H NICHOLAS Administration PFSH Anesthesia Medical History (Updated 05/13/24 @ 09:10 by Angus Riggs DO) High grade dysplasia in colonic adenoma Trigger thumb, right thumb Left carpal tunnel syndrome Cubital tunnel syndrome on right Right carpal tunnel syndrome Mixed hyperlipidemia Seasonal allergic conjunctivitis Glaucoma Hypertension ALANA (generalized anxiety disorder) Surgical History Hx of right hemicolectomy 05/06/23 Dr. Riggs Hx of colonoscopy 03/22/23 Dr. Riggs Hx of carpal tunnel repair bilateral- Dr Lunsford No pertinent past surgical history Family History Other Cancer Heart disease Social History Smoking and tobacco/nicotine status: never used tobacco/nicotine Alcohol intake: never Substance/Drug Use: never Female Reproductive History Spontaneous abortions: No Data Anesthesia Cardiac Studies: No Data to Display
[2024-05-13 09:35] VITALS: BP 117/73; PULSE 66; RESP 18; TEMP 36.1; O2SAT 100
--- NOTE | 2024-05-13 09:37 | ANE.PACU2 ---
Inpatient post-anesthesia follow up: Airway intact: Yes Vital signs: Temperature 97.4 F Pulse Rate 87 Respiratory Rate 18 Blood Pressure 117/91 Pulse Oximetry 98 Oxygen Delivery Me thod Room Air Oxygen Flow Rate Fraction of Inspir ed Oxygen Hydration adequate: Yes Nausea and vomiting: No Pain level: 1 Mental status: Baseline
[2024-05-13 09:40] VITALS: BP 120/72; PULSE 64; RESP 18; O2SAT 98
[2024-05-13 09:50] VITALS: BP 121/69; PULSE 66; RESP 18; O2SAT 98
== END 2024-05-13 10:17 | disposition home or self-care (01) ==
PROVIDERS: PCP Family Medicine; Visit Provider Surgery
PROC: 0DJD8ZZ Inspection of Lower Intestinal Tract, Via Natural or Artificial Opening Endoscopic (ICD-10-PCS; CPT 45378; principal; 2024-05-13 09:00)
DX: Z12.11 Encounter for screening for malignant neoplasm of colon (principal); Z90.49 Acquired absence of other specified parts of digestive tract; D12.5 Benign neoplasm of sigmoid colon; I10 Essential (primary) hypertension; E78.2 Mixed hyperlipidemia; F41.1 Generalized anxiety disorder
CPT/HCPCS: 45385; 88305; J2704; J7030

== ENCOUNTER → 2024-05-29 09:40 | Outpatient (BNVA) | payer MEDICARE, SELFPAY | PROVIDERS: PCP Family Medicine; Visit Provider Surgery | DX: Z09 Encounter for follow-up examination after completed treatment for conditions other than malignant neoplasm (principal); Z90.49 Acquired absence of other specified parts of digestive tract | CPT/HCPCS: 99214 ==

== ENCOUNTER → 2024-07-27 10:06 | Outpatient (BNVA) | payer MEDICARE, SELFPAY | PROVIDERS: PCP Family Medicine; Visit Provider Family Medicine | DX: Z13.1 Encounter for screening for diabetes mellitus (principal); H10.10 Acute atopic conjunctivitis, unspecified eye; I10 Essential (primary) hypertension; E87.6 Hypokalemia; J06.9 Acute upper respiratory infection, unspecified; E78.2 Mixed hyperlipidemia; R73.09 Other abnormal glucose; F41.1 Generalized anxiety disorder | CPT/HCPCS: 80048; 80061; 83036; 83735 ==

== ENCOUNTER 2024-08-07 10:49 | Outpatient (CLI) | payer MEDICARE, SELFPAY ==
--- NOTE | 2024-08-07 10:55 | MM_ITS ---
WS: [id number] BILATERAL SCREENING DIGITAL TOMOSYNTHESIS MAMMOGRAM WITH CAD HISTORY: SCREENING COMPARISON: 06/11/2023, 05/17/2022 Bilateral CC and MLO views with tomosynthesis and synthetic mammography submitted. Computer aided det ection analyzed. Breast composition: There are scattered areas of fibroglandular density. No suspicious masses, microc alcifications or architectural distortion. MM/MM scr BI tomosynthesis [id number] IMPRESSION: BI-RADS: 2 - Benign. FOLLOW UP: 1 Year Follow-up
== END 2024-08-07 10:50 | disposition home or self-care (01) ==
LOC: RAD 10:51
PROVIDERS: PCP Family Medicine; Visit Provider Family Medicine
DX: Z12.31 Encounter for screening mammogram for malignant neoplasm of breast (principal); R92.323 Mammographic fibroglandular density, bilateral breasts
CPT/HCPCS: 77063; 77067

== ENCOUNTER 2024-10-31 12:23 | Emergency (ER) | payer MEDICARE, SELFPAY ==
[2024-10-31 12:43] VITALS: BP 147/99; PULSE 90; RESP 18; TEMP 37.1; O2SAT 99; BMI 27.3
--- NOTE | 2024-10-31 12:50 | XRR_ITS ---
PROCEDURE INFORMATION: Exam: XR Lumbosacral Spine Exam date and time: 10/31/2024 1:15 PM Age: 59 years old Clinical indication: Lumbago with sciatica; Lower back pain with bilateral sciatica x 1 week; No known injury TECHNIQUE: Imaging protocol: Radiologic exam of the lumbosacral spine. Views: 2 or 3 views. COMPARISON: CT abdomen pelvis w con* [id number] 03/15/2023 3:51 PM FINDINGS: Bones/joints: 5 [id number]-npiaiwc vertebral bodies. Vertebral body height is maintained. No subluxation. Normal bone mineralization. Stable mild loss of disc space height at L4-L5. Stable small marginal osteophytes at multiple spinal levels. Interval development of mild to moderate facet hypertrophy at L3-L4 through L5-S1. The right and left sacroiliac joints are unremarkable. No acute fracture. Soft tissues: No paravertebral soft tissue abnormality or soft tissue emphysema. No radiopaque foreign body. Intraperitoneal space: Surgical clip in the right pelvis is stable. XR/XR lumbar spine 2-3V* [id number] IMPRESSION: 1. No acute fracture of the lumbar spine. CT scan would be recommended if there is continuing clinical concern for fracture. 2. Interval development of mild to moderate facet hypertrophy at L3-L4 through L5-S1. 3. Interval development of mild to moderate facet degenerative change at L3-L4 through L5-S1. Other degenerative changes in the visualized spine are stable.
--- NOTE | 2024-10-31 12:55 | ED_ITS ---
HPI - Back Pain/Injury General: Chief Complaint: Back Pain/Injury Stated Complaint: lower back pain Time Seen by Provider: 10/31/24 12:38 Source: patient Mode of arrival: ambulatory Limitations: no limitations History of Present Illness: 59-year-old female states she has been h aving lower back pain throughout the week. States that there bilateral lower to mid back radiates to both legs states the pain sharp in nature much worse with movement states she saw her PCP had wanted her to get an x-ray. She denies any injuries she denies any bowel or bladder incontinence he has had some dysuria as well. Denies any abdominal pain Associated symptoms: Reports dysuria; Deny abdominal pain, chills, fever(s), nausea or vomiting Related Data Home Medications ?Medication ?Instructions ?Recorded ?Confirmed sertraline 50 mg tablet 50 mg PO DAILY 10/31/2410/11 Previous Rx's ?Medication ?Instructions ?Recorded fluticasone propionate 50 1 spray intranasal Q12H #15. 8 mL 10/26/24 mcg/actuation nasal spray,suspension gabapentin 100 mg capsule 300 mg (3 x 100 mg) PO TID P RN 10/26/24 pain #30 caps loratadine 10 mg tablet 10 mg PO DAILY 90 days #90 t abs 10/26/24 losartan 100 1 tab PO DAILY 90 days #90 t abs 10/26/24 mg-hydrochlorothiazide 25 mg tablet potassium chloride 8 mEq 8 meq PO TID 90 days #270 ca ps 10/26/24 capsule,extended release methocarbamol 750 mg tablet 750 mg PO Q6H PRN spasms # 20 tabs 10/31/24 naproxen 500 mg tablet (Naprosyn) 500 mg PO BID PRN pa in #20 tabs 10/31/24 Allergies Allergy/AdvReac Type Severity Reaction Status Date / Time diphenhydramine (From Allergy rash Verified 10/26/24 09:28 Benadryl) ibuprofen AdvReac Intermediate hives Verified 10/26/24 09:28 aspirin AdvReac Mild hives Verified 10/26/24 09:28 Review of Systems Const: Denies: fever(s), chills, body aches or change in appetite ENMT: Denies: throat pain or dental pain Card: Denies: chest pain Resp: Denies: dyspnea GI: Denies: abdominal pain, nausea, vomiting or diarrhea : Reports: dysuria Musc: Reports: back pain; Denies: neck pain Skin/Breast: Denies: rash PFSH ED PFSH: Medical History High grade dysplasia in colonic adenoma Trigger thumb, right thumb Left carpal tunnel syndrome Cubital tunnel syndrome on right Right carpal tunnel syndrome Mixed hyperlipidemia Seasonal allergic conjunctivitis Glaucoma Hypertension ALANA (generalized anxiety disorder) Surgical History Hx of right hemicolectomy 05/06/23 Dr. Riggs Hx of colonoscopy 03/22/23 Dr. Riggs Hx of carpal tunnel repair bilateral- Dr Lunsford No pertinent past surgical history Family History Other Cancer Heart disease Social History Smoking and tobacco/nicotine status: never used tobacco/nicotine Alcohol intake: never Substance/Drug Use: never Female Reproductive History: Spontaneous abortions: No Physical Exam Const: COMMON NORMALS: no acute distress, patient oriented x3 and healthy appearing HENMT: COMMON NORMALS: normocephalic and atraumatic HEAD & SCALP: normocephalic and atraumatic Eye: COMMON NORMALS: conjunctivae normal CONJUNCTIVA: Yes conjunctivae normal Neck/C-Spine: COMMON NORMALS: full ROM and supple Chest: COMMONS NORMALS: normal inspection of the chest Resp: COMMON NORMALS: normal respiratory effort Cardio: COMMON NORMALS: regular rate, regular rhythm and No murmurs present (Cardio) RATE: regular rate RHYTHM: regular rhythm GI: COMMON NORMALS: Normal to inspection, nondistended, normoactive bowel sounds present, Soft to palpation, non-tender and no masses PALPATION: Yes S oft to palpation Back/Pelvis: OTHER: No midline tenderness some slight paraspinal tenderness no saddle anesthesia Extremity: COMMON NORMALS: normal to inspection and full ROM Neuro: COMMON NORMALS: patient oriented x3, moves all extremities and no focal motor deficits Psych: COMMON NORMALS: mental status grossly normal, Normal thought process present and cooperative THOUGHT PROCESS: Normal thought process present Skin: COMMON NORMALS: no rashes or lesions noted and no wounds GENERAL SKIN EXAM: no rashes or lesions noted Course Vital Signs: Vital signs: Vital Signs Temperature 98.7 F 10/31/24 12:43 Pulse Rate 82 10/31/24 13:36 Respiratory Rate 16 10/31/24 13:36 Blood Pressure 147/99 10/31/24 13:36 Pulse Oximetry 97 10/31/24 13:36 Oxygen Delivery Me thod Room Air 10/31/24 12:43 MDM - Back Pain/Injury Medical Decision Making Patient presents here with back pain likely muscular in nature exam here is benign no signs of cauda equina or epidural abscess. Urinalysis is negative x- ray is normal we will place on Naprosyn Robaxin she is follow-up with PCP return if worsening. Medical Records I reviewed the patient's medical records. Labs I reviewed the patient's lab results. Laboratory Results Urine Color Yellow (Yellow) 10/31/24 13:14 Urine Appearance Clear (CLEAR) 10/31/24 13:14 Urine pH 7.5 (5-7) 10/31/24 13:14 Ur Specific Beaman 1.010 (1.005-1.030) 10/31/24 13:14 Urine Protein Negative (Negative) 10/31/24 13:14 Urine Glucose (UA) Negative (Normal) 10/31/24 13:14 Urine Ketones Negative (Negative) 10/31/24 13:14 Urine Blood Non-haemolysed trace (Negative) 10/31/24 13:14 Urine Nitrate Negative (Negative) 10/31/24 13:14 Urine Bilirubin Negative (Negative) 10/31/24 13:14 Urine Urobilinogen 0.2 mg/dL (Negative) 10/31/24 13:14 Ur Leukocyte Esterase Negative (Negative) 10/31/24 13:14 Urine RBC 0-2 /hpf (0-2) 10/31/24 13:14 Urine WBC 0-5 /hpf (0-5) 10/31/24 13:14 Ur Squamous Epith Cells 0-5 /hpf (0-5) 10/31/24 13:14 Amorphous Sediment Not Reportable 10/31/24 13:14 Urine Bacteria None seen /hpf (NONE) 10/31/24 13:14 Hyaline Casts 0.81 /lpf 10/31/24 13:14 XR interpretation done by ED provider, pending radiology final review ED provider radiology interpretation(s): xr lumbar spine: no acute abnormality Discharge Plan Discharge Patient Disposition: Home Clinical Impression: Back pain Condition: Stable Prescriptions: New methocarbamol 750 mg tablet 750 mg PO Q6H PRN (Reason: spasms) Qty: 20 0RF naproxen [Naprosyn] 500 mg tablet 500 mg PO BID PRN (Reason: pain) Qty: 20 0RF No Action gabapentin 100 mg capsule 300 mg PO TID MDD 9 caps PRN (Reason: pain) Qty: 30 2RF Rx Instructions: 1-3 caps up to three times a day as needed for pain fluticasone propionate 50 mcg/actuation spray,suspension 1 spray intranasal Q12H Qty: 15.8 11RF Rx Instructions: administer into each nostril loratadine 10 mg tablet 10 mg PO DAILY 90 Days Qty: 90 3RF losartan-hydrochlorothiazide 100-25 mg tablet 1 tab PO DAILY 90 Days Qty: 90 2RF potassium chloride 8 mEq capsule, extended release 8 meq PO TID 90 Days Qty: 270 2RF sertraline 50 mg tablet 50 mg PO DAILY Rx Instructions: Take 1 tablet by mouth once daily Discharge Orders: Discharge ED (Routine); Ordered 10/31/24 Ordered By: Etelvina Anderson Referrals: Laurel Poole MD [Primary Care Provider] - 4-7 days Discharge Diet: Advance as tolerated Discharge Activity: Resume usual activity Patient Instructions: Back Pain (ED) Print Language: Yi Coding Level of Care Code ED Packaging Design Engineer for Abel Prabhakar
[2024-10-31] MEDS: ketorolac 30 mg/mL INJ IM (13:33)
[2024-10-31] MEDS: dexamethasone 10 mg/mL INJ IM (13:33)
[2024-10-31] MEDS: methocarbamol 750 mg Tablet 1500 MG PO (13:34)
[2024-10-31 13:36] VITALS: BP 147/99; PULSE 82; RESP 16; O2SAT 97
[2024-10-31 13:37] LABS: Bilirubin Urine Negative (Negative); Blood Urine Non-haemolysed trace (Negative); Glucose Urine UA Negative (Normal); Ketones Urine Negative (Negative); Leukocyte Esterase Urine Negative (Negative); Nitrate Urine Negative (Negative); Protein Urine Negative (Negative); Urine Appearance Clear (CLEAR); Urine Color Yellow (Yellow); Urobilinogen Urine 0.2 mg/dL (Negative); pH Urine 7.5 (5-7)
[2024-10-31 13:42] LABS: Add Urine Microscopic? YES; Bacteria Urine None Seen /hpf; Hyaline Casts Urine 0.81 /lpf; RBC Urine 0-2 /hpf (0-2); Squamous Epithelial Cell Urine 0-5 /hpf (0-5); WBC Urine 0-5 /hpf (0-5)
[2024-10-31 14:17] VITALS: BP 125/85; O2SAT 97
[2024-10-31 14:26] VITALS: BP 125/85; PULSE 66; RESP 16; O2SAT 97
== END 2024-10-31 14:28 | disposition home or self-care (01) ==
PROVIDERS: Emergency Provider Emergency Medicine; PCP Family Medicine
DX: M54.50 Low back pain, unspecified (principal); I10 Essential (primary) hypertension; E78.2 Mixed hyperlipidemia
CPT/HCPCS: 72100; 81001; 96372; 99284; J1100; J1885; J9999

== ENCOUNTER → 2025-01-25 09:53 | Outpatient (BNVA) | payer MEDICARE, SELFPAY | PROVIDERS: PCP Family Medicine; Visit Provider Family Medicine | DX: I10 Essential (primary) hypertension (principal); E87.6 Hypokalemia | CPT/HCPCS: 80053 ==

== ENCOUNTER → 2025-02-01 13:27 | Outpatient (BNVA) | payer MEDICARE, SELFPAY | PROVIDERS: PCP Family Medicine; Visit Provider Student in an Organized Health Care Education/Training Program | DX: Z12.11 Encounter for screening for malignant neoplasm of colon (principal) | CPT/HCPCS: 99024; 99204 ==

== ENCOUNTER 2025-03-23 07:52 | Day surgery (SDC) | payer MEDICARE, SELFPAY ==
[2025-03-23 08:49] VITALS: BP 140/71; PULSE 78; RESP 17; TEMP 36.2; O2SAT 96; BMI 30.9
--- NOTE | 2025-03-23 09:30 | ANES.PREANE2 ---
Pre-Anesthetic Assessment Height/Weight: Height 1.55 m Weight 74.389 kg Temp Pulse Resp BP Pulse Ox O2 Del Method 97.2 F L 78 17 140/71 96 Room Air 03/23/25 08:49 03/23/25 08:49 03/23/25 08:49 03/23/25 08:49 03/23/25 08:49 03/23/25 08:49 Operation Date: 03/23/25 09:30 Proposed Procedures p Colonoscopy [id number] Z12.11(Not Applicable) - Tray Coats MD Familial anesthetic complications: none Was Beta Zhang taken within 24 hours: N/A Was Clonidine taken within 24 hours: N/A Last intake: Intake Last Liquid Date 03/22/25 Last Liquid Time 22:00 Last Solid Date 03/21/25 Last Solid Time 19:30 Social No alcohol and No tobacco Exam alert, oriented x 3 and clear to auscultation bilaterally Airway Mallampati: Class I Dentition: false History/ROS No significant history except as noted Pulmonary None reported CV/HEM Hypertension None reported Hepatic None reported GI previous colon adenoma with hemicolectomy Metabolic Hyperlipidemia [facility] [place] None reported Neuropsych None reported Anesthetic Plan ASA status: 2 Anesthesia: Anesthesia Evaluation and MAC Risk of > 500 ml blood loss (7ml/kg in children): Yes, adequate IV access and fluids planned Medications/Allergies Home Medications ?Medication ?Instructions ?Recorded ?Confirmed ?Last Taken ?Type losartan 100 1 tab PO DAILY 90 days #90 tabs 10/26/24 03/23/25 03/22/25 Rx mg-hydrochlorothiazide 25 mg tablet potassium chloride 8 mEq 8 meq PO TID 90 days #270 caps 10/26/24 03/23/25 03/22/25 Rx capsule,extended release methocarbamol 750 mg tablet 750 mg PO Q6H PRN spasms #20 tabs 10/31/24 03/23/25 03/22/25 Rx sertraline 50 mg tablet 50 mg PO DAILY 10/31/24 03/23/25 03/22/25 History gabapentin 100 mg capsule 200 mg (2 x 100 mg) PO TID PRN 11/02/24 03/23/25 03/22/25 Rx pain 30 days #180 caps cetirizine 10 mg tablet 10 mg PO DAILY 90 days #90 tabs 12/07/24 03/23/2503/22/25 Rx fluticasone propionate 50 1 spray intranasal Q12H #15.8 mL 12/07/24 03/23/25 03/22/25 Rx mcg/actuation nasal spray,suspension triamcinolone acetonide 0.1 % 1 applic topical BID PRN itching 12/07/24 03/23/25 1 Week Ago Rx topical cream #454 grams ~03/10/25 Allergies Allergy/AdvReac Type Severity Reaction Status Date / Time diphenhydramine (From Allergy rash Verified 03/23/25 08:44 Benadryl) ibuprofen AdvReac Intermediate hives Verified 03/23/25 08:44 aspirin AdvReac Mild hives Verified 03/23/25 08:44 Current Medications Generic Name Dose Route Start Last Admin Trade Name Freq PRN Reason Stop Dose Admin Sodium Chloride 1,000 mls @ 15 mls/hr 03/23/25 08:39 03/23/25 08:55 Sodium Chloride 0.9% IV 03/24/25 08:38 15 mls/hr .Q24H PRN Administration COLONOSCOPY FLUIDS PFSH Anesthesia Medical History High grade dysplasia in colonic adenoma Trigger thumb, right thumb Left carpal tunnel syndrome Cubital tunnel syndrome on right Right carpal tunnel syndrome Mixed hyperlipidemia Seasonal allergic conjunctivitis Glaucoma Hypertension ALANA (generalized anxiety disorder) Surgical History Hx of right hemicolectomy 05/06/23 Dr. Riggs Hx of colonoscopy 03/22/23 Dr. Riggs Hx of carpal tunnel repair bilateral- Dr Lunsford No pertinent past surgical history Family History Other Cancer Heart disease Social History Smoking and tobacco/nicotine status: never used tobacco/nicotine Alcohol intake: never Substance/Drug Use: never Female Reproductive History Spontaneous abortions: No
--- NOTE | 2025-03-23 09:42 | PC.NURSE ---
cecum time 1713
[2025-03-23 09:55] VITALS: BP 128/78; PULSE 74; RESP 16; TEMP 36.6; O2SAT 99
--- NOTE | 2025-03-23 09:56 | W.PM.OPSFHP ---
Same Day Surgery H&P Indication for Procedure/HPI DATE OF PROCEDURE: March 23, 2025 CHIEF COMPLAINT/INDICATIONFOR SURGICAL PROCEDURE: screening colonoscopy PREOP DIAGNOSIS: screening colonoscopy PLANNED PROCEDURE: Operation Date: 03/23/25 09:30 Proposed Procedures p Colonoscopy [id number] G0105 Z12.11(Not Applicable) - Tray Caots MD Medications/Allergies* Home Medications ?Medication ?Instructions ?Recorded ?Confirmed ?Type sertraline 50 mg tablet 50 mg PO DAILY 10/31/24 03/23/25 History Allergies/Adverse Reactions Allergy/AdvReac Type Severity Reaction Status Date / Time diphenhydramine (From Allergy rash Verified 03/23/25 08:44 Benadryl) ibuprofen AdvReac Intermediate hives Verified 03/23/25 08:44 aspirin AdvReac Mild hives Verified 03/23/25 08:44 Current Medications: Generic Name Dose Route Start Last Admin Trade Name Freq PRN Reason Stop Dose Admin Sodium Chloride 1,000 mls @ 15 mls/hr 03/23/25 08:39 03/23/25 08:55 Sodium Chloride 0.9% IV 03/24/25 08:38 15 mls/hr .Q24H PRN Administration COLONOSCOPY FLUIDS Pertinent History/Comorbid Conditions* Medical History (Updated 01/26/25 @ 14:09 by Yohana Mariee LPN) High grade dysplasia in colonic adenoma Trigger thumb, right thumb Left carpal tunnel syndrome Cubital tunnel syndrome on right Right carpal tunnel syndrome Mixed hyperlipidemia Seasonal allergic conjunctivitis Glaucoma Hypertension ALANA (generalized anxiety disorder) Surgical History (Updated 05/29/24 @ 10:37 by Angus Riggs DO) Hx of right hemicolectomy 05/06/23 Dr. Riggs Hx of colonoscopy 03/22/23 Dr. Riggs Hx of carpal tunnel repair bilateral- Dr Lunsford No pertinent past surgical history Family History (Updated 09/29/19 @ 11:42 by Judy Gonsales RN) Heart disease Cancer Social History Smoking and tobacco/nicotine status: never used tobacco/nicotine Alcohol intake: never Substance/Drug Use: never Pertinent Exam Findings alert, oriented x 3, clear to auscultation bilaterally, regular rate & rhythm and procedure specific exam findings abdomen soft, nt, nd Recommendations Risks and benefits of procedure reviewed and Patient/family agree to proceed Surgery/Procedure today Coding Level of Care Code Acute Code for Chg Fwd
[2025-03-23 10:05] VITALS: BP 129/78; PULSE 79; RESP 16; O2SAT 99
[2025-03-23 10:20] VITALS: BP 125/84; PULSE 69; RESP 16; O2SAT 99
--- NOTE | 2025-03-23 10:36 | ANE.PACU2 ---
Inpatient post-anesthesia follow up: Airway intact: Yes Vital signs: Temperature 97.9 F Pulse Rate 69 Respiratory Rate 16 Blood Pressure 125/84 Pulse Oximetry 99 Oxygen Delivery Me thod Room Air Oxygen Flow Rate Fraction of Inspir ed Oxygen Hydration adequate: Yes Nausea and vomiting: No Pain level: 1 Mental status: Baseline
== END 2025-03-23 10:36 | disposition home or self-care (01) ==
PROVIDERS: PCP Family Medicine; Visit Provider Student in an Organized Health Care Education/Training Program
PROC: 0DJD8ZZ Inspection of Lower Intestinal Tract, Via Natural or Artificial Opening Endoscopic (ICD-10-PCS; CPT 45378; principal; 2025-03-23 09:30)
DX: Z12.11 Encounter for screening for malignant neoplasm of colon (principal); K63.5 Polyp of colon; I10 Essential (primary) hypertension; E78.2 Mixed hyperlipidemia; F41.9 Anxiety disorder, unspecified
CPT/HCPCS: 45380; 45385; 88305; J2704; J7030; J9999

== ENCOUNTER → 2025-04-08 10:57 | Outpatient (BNVA) | payer MEDICARE, SELFPAY | PROVIDERS: PCP Family Medicine; Visit Provider Student in an Organized Health Care Education/Training Program | DX: Z09 Encounter for follow-up examination after completed treatment for conditions other than malignant neoplasm (principal) | CPT/HCPCS: 99213 ==

== ENCOUNTER → 2025-06-24 08:28 | Outpatient (BNVA) | payer MEDICARE, SELFPAY | PROVIDERS: PCP Family Medicine; Visit Provider Family Medicine | DX: I10 Essential (primary) hypertension (principal); E78.2 Mixed hyperlipidemia | CPT/HCPCS: 80048; 80061 ==

== ENCOUNTER → 2025-07-13 10:03 | Outpatient (BNVA) | payer MEDICARE, SELFPAY | PROVIDERS: PCP Family Medicine; Visit Provider Family Medicine | DX: R09.81 Nasal congestion (principal); R51.9 Headache, unspecified; J02.9 Acute pharyngitis, unspecified | CPT/HCPCS: 87071; 87400; 87426; 87880 ==